=== PATIENT | female | born 1995 | race Two or more races ===

== ENCOUNTER → 2016-08-03 | Outpatient (REF) | payer OTHER ==
[~2016-08-03] MED LIST: ACET50TA PO; IBUP-1114 PO; MOTR200T44 PO; TYLENOL PO; VITAPRTA PO
[2016-08-03 18:23] LABS: ALBUMIN 3.9 GM/DL (3.2-5.2); ALBUMIN/GLOBULIN RATIO 1.03 (1.00-1.93); ALKALINE PHOSPHATASE 113 U/L (45-117); ALT/SGPT 51 U/L (12-78); AMYLASE 23 U/L (25-115); ANION GAP 7 MEQ/L (8-16); AST/SGOT 29 U/L (15-37); BILIRUBIN,TOTAL 0.4 MG/DL (0.2-1.0); BLOOD UREA NITROGEN 15 MG/DL (7-18); CALCIUM LEVEL 8.7 MG/DL (8.5-10.1); CARBON DIOXIDE LEVEL 31 MEQ/L (21-32); CHLORIDE LEVEL 104 MEQ/L (98-107); CREATININE FOR GFR 0.68 MG/DL (0.55-1.02); GLOMERULAR FILTRATION RATE > 60.0 (>60); GLUCOSE, FASTING 73 MG/DL (70-105); POTASSIUM SERUM 4.1 MEQ/L (3.5-5.1); SODIUM LEVEL 142 MEQ/L (136-145); TOTAL PROTEIN 7.7 GM/DL (6.4-8.2)
[2016-08-03 19:00] LABS: BASO % 0.6 % (0.0-1.0); EOS # 0.4 K/mm3 (0.0-0.50); EOS % 5.1 % (0.0-3.0); LARGE UNSTAINED CELL # 0.1 K/mm3 (0.0-0.4); LARGE UNSTAINED CELL % 1.9 % (0.0-4.0); LYMPH # 2.3 K/mm3 (1.5-6.5); MEAN CORPUSCULAR HEMOGLOBIN 26.7 pg (27.0-33.0); MEAN CORPUSCULAR VOLUME 83.3 fl (80.0-96.0); MONO # 0.4 K/mm3 (0.0-0.8); MONO % 5.3 % (0.0-5.0); NEUTROPHILS # 3.7 K/mm3 (1.8-7.7); NEUTROPHILS % 54.2 % (36.0-66.0); PLATELET COUNT, AUTOMATED 353 k/mm3 (150-450); RED CELL DISTRIBUTION WIDTH 13.5 % (11.5-14.5); WHITE BLOOD COUNT 6.8 K/mm3 (4.0-10.0)
== END | disposition home or self-care (01) ==
LOC: M SFHCCLAY 11:00
PROVIDERS: ATTEND Family Medicine
DX: R10.13 Epigastric pain (principal)

== ENCOUNTER → 2016-08-21 | Outpatient (CLI) | payer OTHER ==
--- NOTE | 2016-08-21 12:31 | REP ---
Complete abdominal ultrasound: Comparison is a renal ultrasound dated 09/17/2014. There is a negative Weinstein's sign to transducer pressure over the abdominal right upper quadrant. There is no cholelithiasis, gallbladder wall thickening or pericholecystic fluid. There is no intrahepatic or extrahepatic biliary duct dilatation, the common duct is 2.2 mm diameter. The hepatic parenchyma is homogeneous and unremarkable. The visualized portion of the pancreatic head is unremarkable. The spleen is upper normal size measuring 10.9 x 6.1 x 10.5 cm. Splenic index is mildly elevated measuring 698 (normal is less than 480 ). The kidneys are normal size. The right kidney measures 11.7 x 5 with 6 x 4.0 cm, the left kidney measures 11.0 6.6 x 4.9 cm. There is no hydronephrosis, calculus, mass or cyst in the right and the left kidneys. This is unchanged from the comparison renal ultrasound. There is no abdominal aortic aneurysm. There is no ascites. Impression: Essentially negative complete abdominal ultrasound. Spleen is upper normal size by diameter measurements. Splenic index is mildly elevated. Signed by Og Velasquez MD 08/21/2016 12:23 P
== END | disposition home or self-care (01) ==
LOC: M RAD 08:47
PROVIDERS: ATTEND Family Medicine
DX: R10.13 Epigastric pain (principal)

== ENCOUNTER → 2017-11-18 | Outpatient (REF) | payer OTHER | LOC: M LAB REF 13:22 | DX: R10.2 Pelvic and perineal pain (principal) ==

== ENCOUNTER → 2017-11-18 | Outpatient (REF) | payer OTHER ==
[2017-11-18 16:53] LABS: CHLAMYDIA DNA AMPLIFICATION NEGATIVE (NEGATIVE); GC DNA AMPLIFICATION NEGATIVE (NEGATIVE)
== END ==
LOC: M LAB REF 13:28
DX: R10.2 Pelvic and perineal pain (principal)

== ENCOUNTER → 2017-11-19 | Outpatient (CLI) | payer OTHER | LOC: M RAD 05:56 | DX: R10.2 Pelvic and perineal pain (principal) | CPT/HCPCS: 76856 ==

== ENCOUNTER 2018-10-21 22:25 | Emergency (ER) | payer OTHER ==
[~2018-10-21] VITALS: Ht 162.6 cm; Wt 84.5 kg
[2018-10-21 22:25] VITALS: BP 128/76
[~2018-10-21 22:25] MED LIST changes: -ACET50TA PO; +MAPA500T2 PO
[2018-10-21] MEDS ORDERED: IBUPROFEN 600 MG TAB PO ONE (23:00)
[2018-10-21] MEDS ORDERED: OSELTAMIVIR PHOSPHATE 75 MG CAP (TAMIFLU) PO ONE (23:00)
[2018-10-21] MEDS ORDERED: OSEL75CA PO (23:02)
== END 2018-10-21 23:15 | disposition home or self-care (01) ==
LOC: M ED 22:25
DX: R53.81 Other malaise (principal); R53.83 Other fatigue; B34.9 Viral infection, unspecified; F17.210 Nicotine dependence, cigarettes, uncomplicated

== ENCOUNTER → 2019-02-09 | Outpatient (REF) | payer OTHER ==
[~2019-02-09] MED LIST changes: +OSEL75CA PO
== END ==
LOC: M LAB REF 13:17
PROVIDERS: ATTEND Advanced Practice Midwife
DX: Z12.4 Encounter for screening for malignant neoplasm of cervix (principal)

== ENCOUNTER 2019-05-03 01:56 | Emergency (ER) | payer OTHER ==
[~2019-05-03] VITALS: Ht 162.6 cm; Wt 83.1 kg
[2019-05-03 02:13] LABS: BILIRUBIN, URINE MANUAL OBSCURED (NEGATIVE); GLUCOSE, URINE (UA) MANUAL OBSCURED mg/dL (NEGATIVE); KETONE, URINE MANUAL OBSCURED mg/dL (NEGATIVE); UROBILINOGEN, URINE MANUAL OBSCURED mg/dl (NORMAL)
[2019-05-03 02:17] LABS: BACTERIA, URINE MOD AMOUNT; SQUAMOUS EPITHELIAL CELL URINE SMALL AMOUNT /hpf (SMALL AMT)
[2019-05-03 02:20] LABS: HYALINE CAST, URINE NONE SEEN /lpf (0-1); MUCUS, URINE LARGE AMOUNT (NEGATIVE); TRANSITIONAL EPI CELLS, URINE SMALL AMOUNT /hpf
[2019-05-03 02:21] LABS: AMORPHOUS SEDIMENT, URINE SMALL AMOUNT (NEGATIVE)
[2019-05-03] MEDS ORDERED: BACT800T5 PO (05:56)
[2019-05-03] MEDS ORDERED: BACTRIM 160MG/800MG DS TAB PO ONE (06:00)
[2019-05-03 06:14] VITALS: BP 123/77
== END 2019-05-03 06:17 | disposition home or self-care (01) ==
LOC: M ED 01:56
DX: N39.0 Urinary tract infection, site not specified (principal); Z87.442 Personal history of urinary calculi

== ENCOUNTER 2019-08-16 01:35 | Emergency (ER) | payer OTHER ==
[~2019-08-16] VITALS: Ht 162.6 cm; Wt 79.1 kg
[~2019-08-16 01:35] MED LIST changes: +BACT800T5 PO
[2019-08-16 02:35] LABS: HEMATOCRIT 40.3 % (36.0-47.0); HEMOGLOBIN 13.2 g/dl (12.0-15.5); MEAN CORPUSCULAR HGB CONC 32.8 g/dl (32.0-36.5); MEAN CORPUSCULAR VOLUME 85.4 fl (80.0-96.0); PLATELET COUNT, AUTOMATED 273 10^3/uL (150-450); RED BLOOD COUNT 4.72 10^6/uL (4.00-5.40); WHITE BLOOD COUNT 7.5 10^3/uL (4.0-10.0)
[2019-08-16 02:56] LABS: HCG, SERUM QUALITATIVE NEGATIVE (NEGATIVE)
[2019-08-16 02:59] LABS: ALBUMIN 3.3 GM/DL (3.2-5.2); ALT/SGPT 29 U/L (12-78); BILIRUBIN,TOTAL 0.7 MG/DL (0.2-1.0); BLOOD UREA NITROGEN 11 MG/DL (7-18); CARBON DIOXIDE LEVEL 26 MEQ/L (21-32); CHLORIDE LEVEL 107 MEQ/L (98-107); CREATININE FOR GFR 0.76 MG/DL (0.55-1.30); GLOMERULAR FILTRATION RATE > 60.0 (>60); GLUCOSE, FASTING 102 MG/DL (70-100); LIPASE 117 U/L (73-393); POTASSIUM SERUM 3.6 MEQ/L (3.5-5.1); SODIUM LEVEL 140 MEQ/L (136-145); TOTAL PROTEIN 6.7 GM/DL (6.4-8.2)
[2019-08-16] MEDS ORDERED: ONDANSETRON 4MG/2ML VIAL (J2405) IV ONE (04:15)
[2019-08-16] MEDS ORDERED: KETOROLAC 30 MG/ML VIAL (J1885) IV ONE (08:00)
--- NOTE | 2019-08-16 08:32 | REP ---
clinical: Acute pelvic pain. Technique: Transabdominal pelvic ultrasound followed by transvaginal examination for better evaluation of the endometrium and adnexa with color Doppler evaluation of the ovaries. Findings: Normal anteverted uterus measures 7.7 x 5.0 x 4.2 cm. Endometrial complex measures 8 mm thickness. No discrete uterine or endometrial abnormalities appreciated. The bilateral ovaries are normal in vascularity without torsion. Right ovary measures 3.4 x 1.3 x 2.0 cm. Left ovary measures 4.1 x 2.2 x 4.8 cm (RI 0.52) and includes 3.8 x 2.5 x 3.7 cm cyst. Small amount of free fluid noted in the pelvis. No adnexal mass lesion identified. Bladder is normal and measures 7.7 x 2.7 x 3.8 cm. Impression: 1. 3.8 cm left ovarian cyst likely physiologic. Consider reevaluation in 4-6 weeks to evaluate for resolution. 2. Otherwise normal pelvic ultrasound. No torsion. Electronically Signed by Filipe Smith MD 08/16/2019 08:24 A
--- NOTE | 2019-08-16 08:59 | REP ---
Clinical: Abdominal pain. Technique: Single supine view of the abdomen and pelvis. Findings: Bowel gas pattern is nonspecific. No obvious organomegaly. Tiny left intrarenal calculus cannot be excluded. Impression: Normal bowel gas pattern. Cannot exclude small nonobstructing left renal calculus Electronically Signed by Filipe Smith MD 08/16/2019 08:51 A
[2019-08-16 09:19] VITALS: BP 122/67
[2019-08-16] MEDS ORDERED: ONDA4TAB6 PO (09:52)
--- NOTE | 2019-08-17 19:06 | ED PDOC ---
Post-Departure Follow-Up dr avendano faxed formal report of pelvic us for fu Guera Soliz MD Aug 17, 2019 19:06
== END 2019-08-16 09:26 | disposition home or self-care (01) ==
LOC: M ED 01:35
DX: N83.202 Unspecified ovarian cyst, left side (principal); N20.0 Calculus of kidney; R11.0 Nausea; F41.9 Anxiety disorder, unspecified; R51 Headache; Z20.9 Contact with and (suspected) exposure to unspecified communicable disease; Z72.0 Tobacco use
CPT/HCPCS: 74018; 76830; 76856; 80053; 81001; 83690; 84703; 85027; 93976; 96374; 96375; 99284; J1885; J2405

== ENCOUNTER 2019-09-10 07:05 | Emergency (ER) | payer OTHER, SELFPAY ==
[~2019-09-10] VITALS: Ht 162.6 cm; Wt 81.0 kg
[~2019-09-10 07:05] MED LIST changes: +ONDA4TAB6 PO
[2019-09-10] MEDS ORDERED: PORTTAB (07:12)
[2019-09-10 07:59] LABS: BASO % 0.3 % (0.0-1.0); EOS # 0.5 10^3/uL (0.0-0.5); EOS % 5.5 % (0.0-3.0); HEMATOCRIT 38.1 % (36.0-47.0); HEMOGLOBIN 12.5 g/dl (12.0-15.5); LYMPH # 3.1 10^3/uL (1.5-5.0); LYMPH % 35.4 % (24.0-44.0); MEAN CORPUSCULAR HEMOGLOBIN 28.1 pg (27.0-33.0); MEAN CORPUSCULAR HGB CONC 32.8 g/dl (32.0-36.5); MEAN CORPUSCULAR VOLUME 85.6 fl (80.0-96.0); MONO # 0.5 10^3/uL (0.0-0.8); MONO % 5.7 % (0.0-5.0); NEUTROPHILS # 4.6 10^3/uL (1.5-8.5); NEUTROPHILS % 52.9 % (36.0-66.0); PLATELET COUNT, AUTOMATED 315 10^3/uL (150-450); RED BLOOD COUNT 4.45 10^6/uL (4.00-5.40); WHITE BLOOD COUNT 8.7 10^3/uL (4.0-10.0)
[2019-09-10] MEDS ORDERED: ACETAMINOPHEN 500 MG TAB PO ONE (09:15)
--- NOTE | 2019-09-10 09:19 | REP ---
Pelvic sonography: History: Known left ovarian cyst. Worsening in increased pain. Comparison pelvic sonography August 16, 2019 showed a 3.8 cm left ovarian cyst. Findings: Transabdominal and transvaginal scanning are performed. Uterine dimensions are normal to a point one by a 3.9 x 5.2 cm. Endometrial echo is 0.5 cm thick and centrally placed. There is a 3 x 3 x 7 mm hypoechoic area in the endometrium which may be thrombus or cyst. No focal uterine mass is seen. Urinary bladder solorzano are smooth. Right ovarian dimensions are 3.0 x 1.4 x 1.4 cm. Right ovary is normal. Left ovary measures 3.4 x 2.2 x 3.1 cm. There is a 2.8 by 1.7 x 1.9 cm follicle cyst in the left ovary today. This is smaller than previously noted. Impression: 2.8 cm follicle cyst left ovary. No free fluid. No other significant finding. Electronically Signed by Stefan Martinez MD 09/10/2019 09:11 A
[2019-09-10 09:37] VITALS: BP 107/62
[2019-09-10 10:28] LABS: CHLAMYDIA DNA AMPLIFICATION NEGATIVE (NEGATIVE); GC DNA AMPLIFICATION NEGATIVE (NEGATIVE)
== END 2019-09-10 09:39 | disposition home or self-care (01) ==
LOC: M ED 07:05
DX: N93.8 Other specified abnormal uterine and vaginal bleeding (principal); N83.02 Follicular cyst of left ovary; Z72.0 Tobacco use; Z87.42 Personal history of other diseases of the female genital tract; Z79.3 Long term (current) use of hormonal contraceptives

== ENCOUNTER 2019-12-15 11:07 | Emergency (ER) | payer OTHER ==
[~2019-12-15] VITALS: Ht 162.6 cm; Wt 77.3 kg
[~2019-12-15 11:07] MED LIST changes: +PORTTAB
[2019-12-15] MEDS ORDERED: LILL1TAB PO (11:18)
[2019-12-15 11:39] LABS: BASO % 0.5 % (0.0-1.0); EOS # 0.3 10^3/uL (0.0-0.5); EOS % 5.7 % (0.0-3.0); HEMATOCRIT 44.1 % (36.0-47.0); HEMOGLOBIN 14.6 g/dl (12.0-15.5); MEAN CORPUSCULAR HEMOGLOBIN 28.5 pg (27.0-33.0); MEAN CORPUSCULAR HGB CONC 33.1 g/dl (32.0-36.5); MONO # 0.3 10^3/uL (0.0-0.8); MONO % 5.2 % (0.0-5.0); NEUTROPHILS # 3.3 10^3/uL (1.5-8.5); NEUTROPHILS % 55.4 % (36.0-66.0); PLATELET COUNT, AUTOMATED 344 10^3/uL (150-450); RED BLOOD COUNT 5.13 10^6/uL (4.00-5.40)
[2019-12-15 12:10] LABS: ALBUMIN 3.8 GM/DL (3.2-5.2); BILIRUBIN,DIRECT 0.1 MG/DL (0.0-0.2); BILIRUBIN,TOTAL 0.4 MG/DL (0.2-1.0); TOTAL PROTEIN 7.8 GM/DL (6.4-8.2)
[2019-12-15] MEDS ORDERED: KETOROLAC 30 MG/ML 1ML VIAL IV ONE (12:15)
[2019-12-15] MEDS ORDERED: NS 1,000 ML IV ONE (12:15)
--- NOTE | 2019-12-15 13:45 | REP ---
REASON: Abdominal pain. COMPARISON: None. Ultrasonographic evaluation of the gallbladder shows near specular reflection in the gallbladder fossa consistent with SKYLER triad. The technologist has indicated that the patient has a positive sonographic Weinstein's sign. The common bile duct is dilated for the patient's age measuring 8 mm and millimeter sized echogenic foci are seen in the common bile duct. Ultrasonographic evaluation of the liver, pancreas, and imaged portion of the right kidney show no abnormalities. There is no free fluid in the abdomen. IMPRESSION: 1. SKYLER triad consistent a gallbladder chocked full of choleliths. This makes evaluation of the gallbladder wall unobtainable. There is no jacki pericholecystic edema, however, the technologist has described on the worksheet that the patient has a sonographic Weinstein's sign. 2. Common bile duct dilatation with evidence of choledocholiths and even sludge within the common bile duct. This needs to be correlated clinically with appropriate followup to ensure resolution. Electronically Signed by Gregorio Best DO 12/15/2019 03:05 P
[2019-12-15] MEDS ORDERED: IBUP1TAB7 PO (13:48)
[2019-12-15] MEDS ORDERED: LR 1,000 ML IV SCH (14:30)
[2019-12-15] MEDS ORDERED: ONDANSETRON 4MG/2ML VIAL IV ONE (14:45)
[2019-12-15] MEDS ORDERED: MORPHINE 4 MG/ML 1ML VIAL/SYRINGE (J2270) IV ONE ×2 (14:45→19:00)
[2019-12-15 19:01] VITALS: BP 140/89
== END 2019-12-15 19:03 | disposition short-term general hospital (02) ==
LOC: M ED 11:07
DX: K80.70 Calculus of gallbladder and bile duct without cholecystitis without obstruction (principal); K83.8 Other specified diseases of biliary tract; R11.0 Nausea; Z87.442 Personal history of urinary calculi; Z87.42 Personal history of other diseases of the female genital tract; Z72.0 Tobacco use; Z79.3 Long term (current) use of hormonal contraceptives
CPT/HCPCS: 76705; 80047; 80076; 81001; 83690; 84702; 85025; 96361; 96374; 96375; 96376; 99284; J1885; J2270; J2405

== ENCOUNTER 2019-12-26 03:11 | Emergency (ER) | payer OTHER ==
[~2019-12-26] VITALS: Ht 162.6 cm; Wt 76.4 kg
[~2019-12-26 03:11] MED LIST changes: +IBUP1TAB7 PO; +LILL1TAB PO
[2019-12-26] MEDS ORDERED: OXYC-517 PO (03:15)
[2019-12-26] MEDS ORDERED: ZOFR4TAB16 PO (03:15)
[2019-12-26 04:06] LABS: BASO % 0.4 % (0.0-1.0); EOS # 0.2 10^3/uL (0.0-0.5); EOS % 2.6 % (0.0-3.0); HEMATOCRIT 43.2 % (36.0-47.0); HEMOGLOBIN 14.6 g/dl (12.0-15.5); LYMPH # 1.9 10^3/uL (1.5-5.0); LYMPH % 26.1 % (24.0-44.0); MEAN CORPUSCULAR HEMOGLOBIN 28.8 pg (27.0-33.0); MEAN CORPUSCULAR HGB CONC 33.8 g/dl (32.0-36.5); MEAN CORPUSCULAR VOLUME 85.2 fl (80.0-96.0); MONO # 0.5 10^3/uL (0.0-0.8); MONO % 6.3 % (0.0-5.0); NEUTROPHILS # 4.7 10^3/uL (1.5-8.5); NEUTROPHILS % 64.3 % (36.0-66.0); PLATELET COUNT, AUTOMATED 372 10^3/uL (150-450); RED BLOOD COUNT 5.07 10^6/uL (4.00-5.40); WHITE BLOOD COUNT 7.3 10^3/uL (4.0-10.0)
[2019-12-26] MEDS ORDERED: ONDANSETRON 4MG/2ML VIAL IV ONE (04:15)
[2019-12-26] MEDS ORDERED: HYDROMORPHONE HCL 0.5 MG/ 0.5 ML SYRINGE (J1170 PER 1) IV PRN (04:15)
[2019-12-26 04:17] LABS: ALBUMIN 3.6 GM/DL (3.2-5.2); BILIRUBIN,DIRECT 1.6 MG/DL (0.0-0.2); BILIRUBIN,TOTAL 2.4 MG/DL (0.2-1.0); TOTAL PROTEIN 7.7 GM/DL (6.4-8.2)
[2019-12-26] MEDS ORDERED: ISOVUE-370 76% 100ML VIAL As Ordered ONE (04:18)
[2019-12-26] MEDS ORDERED: METOCLOPRAMIDE INJ 10MG/2ML VIAL (J2765 PER 1) IV ONE (04:45)
--- NOTE | 2019-12-26 04:46 | REPVR ---
PROCEDURE INFORMATION: Exam: CT Angiography Chest With Contrast Exam date and time: 12/26/2019 4:05 AM Age: 24 years old Clinical indication: Chest pain; Type not specified; Additional info: Chest pain, back pain, recent lap choley TECHNIQUE: Imaging protocol: Computed tomographic angiography of the chest with intravenous contrast. 3D rendering: MIP and/or 3D reconstructed images were created by the technologist. Radiation optimization: All CT scans at this facility use at least one of these dose optimization techniques: automated exposure control; mA and/or kV adjustment per patient size (includes targeted exams where dose is matched to clinical indication); or iterative reconstruction. Contrast material: ISO; Contrast volume: 100 ml; Contrast route: INTRAVENOUS (IV); COMPARISON: No relevant prior studies available. FINDINGS: Pulmonary arteries: The main pulmonary artery measures 24 mm. No pulmonary embolism is identified. Aorta: The ascending thoracic aorta measures 24 mm. Lungs: Minimal dependent atelectasis. Pleural space: Unremarkable. No pneumothorax. No pleural effusion. Heart: Unremarkable. No cardiomegaly. No pericardial effusion. Mediastinal space: There is soft tissue conforming to the anterior mediastinum consistent with residual thymic tissue. Lymph nodes: Unremarkable. No enlarged lymph nodes. Bones/joints: Unremarkable. No acute fracture. Soft tissues: Unremarkable. IMPRESSION: Negative CTA chest. No pulmonary embolism is identified. Electronically signed by: Rizwan Valdovinos On 12/26/2019 04:46:25 AM
--- NOTE | 2019-12-26 04:54 | REPVR ---
PROCEDURE INFORMATION: Exam: CT Abdomen And Pelvis With Contrast Exam date and time: 12/26/2019 4:05 AM Age: 24 years old Clinical indication: Abdominal pain; Epigastric; Prior surgery; Surgery date: <1 month; Surgery type: Lap martita; Additional info: Chest pain, back pain, recent lap choley TECHNIQUE: Imaging protocol: Computed tomography of the abdomen and pelvis with intravenous contrast. Radiation optimization: All CT scans at this facility use at least one of these dose optimization techniques: automated exposure control; mA and/or kV adjustment per patient size (includes targeted exams where dose is matched to clinical indication); or iterative reconstruction. Contrast material: ISO; Contrast volume: 100 ml; Contrast route: INTRAVENOUS (IV); COMPARISON: US PELVIC NON-OB COMPLETE 09/10/2019 8:34 AM FINDINGS: Liver: Normal. No mass. Gallbladder and bile ducts: Status post cholecystectomy. Pancreas: Normal. No ductal dilation. Spleen: Normal. No splenomegaly. Adrenals: Normal. No mass. Kidneys and ureters: Normal. No hydronephrosis. Stomach and bowel: Borderline distention of proximal jejunum which is nonspecific. Appendix: A normal appendix is seen. Intraperitoneal space: Trace free fluid in the pelvis. Vasculature: Unremarkable. No abdominal aortic aneurysm. Lymph nodes: Unremarkable. No enlarged lymph nodes. Bladder: Unremarkable as visualized. Reproductive: Unremarkable as visualized. Bones/joints: Unremarkable. No acute fracture. Soft tissues: Subcutaneous gas in the right anterior abdominal wall consistent with recent surgery. IMPRESSION: 1. Findings consistent with recent cholecystectomy. 2. Otherwise negative CT abdomen/pelvis. Electronically signed by: Rizwan Valdovinos On 12/26/2019 04:54:18 AM
[2019-12-26] MEDS ORDERED: ONDA4TAB6 PO (05:52)
[2019-12-26 06:01] VITALS: BP 121/70
--- NOTE | 2019-12-26 07:55 | ECGEPIP ---
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
== END 2019-12-26 06:04 | disposition home or self-care (01) ==
LOC: M ED 03:11
DX: G89.18 Other acute postprocedural pain (principal); R10.13 Epigastric pain; Z90.49 Acquired absence of other specified parts of digestive tract; F17.210 Nicotine dependence, cigarettes, uncomplicated; Z79.3 Long term (current) use of hormonal contraceptives
CPT/HCPCS: 71275; 74177; 80047; 80076; 83690; 84702; 85025; 93005; 96374; 96375; 99284; J1170; J2405; J2765; Q9967

== ENCOUNTER → 2020-01-08 | Outpatient (CLI) | payer OTHER ==
[~2020-01-08] MED LIST changes: +CEFD300CAP PO; +MACR100C43 PO; +NORC1TAB7 PO; +OXYC-517 PO; +ZOFR4TAB16 PO
[2020-01-08 18:57] LABS: ALBUMIN 3.6 GM/DL (3.2-5.2); ALT/SGPT 81 U/L (12-78); BILIRUBIN,TOTAL 0.3 MG/DL (0.2-1.0); BLOOD UREA NITROGEN 8 MG/DL (7-18); CALCIUM LEVEL 8.8 MG/DL (8.5-10.1); CARBON DIOXIDE LEVEL 26 MEQ/L (21-32); CHLORIDE LEVEL 109 MEQ/L (98-107); CREATININE FOR GFR 0.76 MG/DL (0.55-1.30); GLOMERULAR FILTRATION RATE > 60.0 (>60); GLUCOSE, FASTING 74 MG/DL (70-100); SODIUM LEVEL 140 MEQ/L (136-145); TOTAL PROTEIN 7.7 GM/DL (6.4-8.2)
== END ==
LOC: M LAB 18:07
PROVIDERS: ATTEND Surgery
DX: K80.42 Calculus of bile duct with acute cholecystitis without obstruction (principal)

== ENCOUNTER 2020-01-09 10:13 | Emergency (ER) | payer OTHER ==
[~2020-01-09] VITALS: Ht 162.6 cm; Wt 77.8 kg
[~2020-01-09 10:13] MED LIST changes: -CEFD300CAP PO; -MACR100C43 PO; -NORC1TAB7 PO
[2020-01-09] MEDS ORDERED: NS 1,000 ML IV ONE ×2 (10:45→14:00)
[2020-01-09] MEDS ORDERED: ONDANSETRON 4MG/2ML VIAL IV ONE (10:45)
[2020-01-09] MEDS: HYDROMORPHONE HCL 0.5 MG/ 0.5 ML SYRINGE (J1170 PER 1) IV PRN ×2 (10:55→11:27)
[2020-01-09 11:12] LABS: BASO % 0.3 % (0.0-1.0); EOS # 0.3 10^3/uL (0.0-0.5); EOS % 3.6 % (0.0-3.0); HEMATOCRIT 44.3 % (36.0-47.0); HEMOGLOBIN 14.6 g/dl (12.0-15.5); LYMPH # 1.8 10^3/uL (1.5-5.0); LYMPH % 24.3 % (24.0-44.0); MEAN CORPUSCULAR HEMOGLOBIN 28.5 pg (27.0-33.0); MEAN CORPUSCULAR VOLUME 86.5 fl (80.0-96.0); MONO # 0.4 10^3/uL (0.0-0.8); MONO % 5.3 % (0.0-5.0); NEUTROPHILS # 4.9 10^3/uL (1.5-8.5); NEUTROPHILS % 66.2 % (36.0-66.0); PLATELET COUNT, AUTOMATED 366 10^3/uL (150-450); RED BLOOD COUNT 5.12 10^6/uL (4.00-5.40); WHITE BLOOD COUNT 7.4 10^3/uL (4.0-10.0)
[2020-01-09] MEDS ORDERED: ISOVUE-370 76% 100ML VIAL As Ordered ONE (11:33)
[2020-01-09] MEDS ORDERED: PROMETHAZINE INJ 25 MG/ML VIAL (J2550) IV ONE ×2 (12:00→14:45)
[2020-01-09 13:30] LABS: BILIRUBIN,DIRECT 0.9 MG/DL (0.0-0.2); BILIRUBIN,TOTAL 1.4 MG/DL (0.2-1.0); TOTAL PROTEIN 8.1 GM/DL (6.4-8.2)
--- NOTE | 2020-01-09 15:52 | REP ---
REASON FOR EXAM: Abdominal pain. COMPARISON EXAM: 12/26/2019 CONTRAST: 100 mL Isovue 370. The lung bases are clear and unchanged. The patient is status post cholecystectomy. The liver, spleen, adrenal glands, and kidneys are again seen to be within normal limits. There is fluid in the left anterior pararenal space with a small amount of fluid seen in the left paracolic gutter. There is a haziness throughout the peripancreatic mesentery. There is mild diffuse low density seen throughout the pancreas. All of this represents a change from the prior exam. There is no additional free fluid in the abdomen or pelvis. There is no free air in the abdomen or pelvis. The bowel loops and their mesenteries are otherwise unremarkable. The abdominal aorta and periaortic regions are unchanged. The osseous structures are stable and intact. IMPRESSION: Pancreatitis. Electronically Signed by Gregorio Best DO 01/09/2020 05:29 P
--- NOTE | 2020-01-09 16:03 | REP ---
REASON: Chest pain. COMPARISON: 12/26/[address] angio chest. CONTRAST: 100 mL Isovue 370. There is excellent visualization of the pulmonary arterial vasculature. There are no focal filling defects present that would be considered consistent with acute pulmonary emboli. There are no pleural or pericardial effusions. The mediastinum and pulmonary elza are again seen to be within normal limits status quo. Evaluation of the lung toscano shows mild dependent bilateral subsegmental atelectatic changes without evidence of a new abnormal nodule, mass, or opacity. The thoracic aorta is within normal limits. Bone window technique throughout the examination shows the osseous structures to be stable and intact. IMPRESSION: CT findings are within normal limits. Electronically Signed by Gregorio Best DO 01/09/2020 05:31 P
[2020-01-09 17:10] VITALS: BP 113/62
== END 2020-01-09 17:17 | disposition short-term general hospital (02) ==
LOC: M ED 10:13
DX: K85.90 Acute pancreatitis without necrosis or infection, unspecified (principal); R94.5 Abnormal results of liver function studies; Z87.442 Personal history of urinary calculi; Z87.891 Personal history of nicotine dependence; Z79.3 Long term (current) use of hormonal contraceptives
CPT/HCPCS: 71275; 74177; 80047; 80076; 82150; 83605; 83690; 84702; 85025; 93041; 96361; 96374; 96375; 96376; 99285; J1170; J2405; Q9967

== ENCOUNTER 2020-04-14 19:17 | Emergency (ER) | payer OTHER ==
[~2020-04-14] VITALS: Ht 162.6 cm; Wt 75.9 kg
[2020-04-14] MEDS ORDERED: CEFD300CAP PO (19:21)
[2020-04-14] MEDS ORDERED: MACR100C43 PO (19:21)
[2020-04-14] MEDS ORDERED: METOCLOPRAMIDE INJ 10MG/2ML VIAL (J2765 PER 1) IV ONE (20:00)
[2020-04-14] MEDS ORDERED: NS 1,000 ML IV ONE (20:00)
[2020-04-14 20:35] LABS: BASO % 0.2 % (0.0-1.0); EOS # 0.4 10^3/uL (0.0-0.5); HEMATOCRIT 41.8 % (36.0-47.0); HEMOGLOBIN 13.6 g/dl (12.0-15.5); LYMPH # 3.3 10^3/uL (1.5-5.0); LYMPH % 36.5 % (24.0-44.0); MEAN CORPUSCULAR HEMOGLOBIN 27.9 pg (27.0-33.0); MEAN CORPUSCULAR HGB CONC 32.5 g/dl (32.0-36.5); MEAN CORPUSCULAR VOLUME 85.8 fl (80.0-96.0); MONO # 0.5 10^3/uL (0.0-0.8); MONO % 5.4 % (0.0-5.0); NEUTROPHILS # 4.9 10^3/uL (1.5-8.5); NEUTROPHILS % 53.7 % (36.0-66.0); PLATELET COUNT, AUTOMATED 271 10^3/uL (150-450); RED BLOOD COUNT 4.87 10^6/uL (4.00-5.40); WHITE BLOOD COUNT 9.1 10^3/uL (4.0-10.0)
[2020-04-14 20:45] LABS: INR 0.91; PROTHROMBIN TIME 12.5 SECONDS (12.5-14.3)
[2020-04-14 21:07] LABS: ALBUMIN 3.4 GM/DL (3.2-5.2); ALT/SGPT 34 U/L (12-78); BILIRUBIN,DIRECT < 0.1 MG/DL (0.0-0.2); BILIRUBIN,TOTAL 0.2 MG/DL (0.2-1.0); BLOOD UREA NITROGEN 12 MG/DL (7-18); CALCIUM LEVEL 8.5 MG/DL (8.5-10.1); CARBON DIOXIDE LEVEL 30 MEQ/L (21-32); CHLORIDE LEVEL 105 MEQ/L (98-107); CREATININE FOR GFR 0.78 MG/DL (0.55-1.30); GLOMERULAR FILTRATION RATE > 60.0 (>60); GLUCOSE, FASTING 79 MG/DL (70-100); LIPASE 147 U/L (73-393); POTASSIUM SERUM 4.1 MEQ/L (3.5-5.1); SODIUM LEVEL 140 MEQ/L (136-145); TOTAL PROTEIN 6.9 GM/DL (6.4-8.2)
--- NOTE | 2020-04-14 21:42 | REPVR ---
PROCEDURE INFORMATION: Exam: CT Abdomen And Pelvis Without Contrast Exam date and time: 04/14/2020 9:06 PM Age: 25 years old Clinical indication: Abdominal pain; Prior surgery; Surgery date: 3-7 days post-operative; Surgery type: Hysterectomy; Additional info: Pelvic pain TECHNIQUE: Imaging protocol: Computed tomography of the abdomen and pelvis without contrast. Radiation optimization: All CT scans at this facility use at least one of these dose optimization techniques: automated exposure control; mA and/or kV adjustment per patient size (includes targeted exams where dose is matched to clinical indication); or iterative reconstruction. COMPARISON: CT ABD/PEL W/IV CONTRAST ONLY 01/09/2020 11:29 AM FINDINGS: Lungs: Minimal fibro-atelectatic change in the right middle lobe. Liver: Normal. No mass. Gallbladder and bile ducts: Status post cholecystectomy. Pancreas: Normal. No ductal dilation. Spleen: Normal. No splenomegaly. Adrenals: Normal. No mass. Kidneys and ureters: Small nonobstructing bilateral renal calculi. Stomach and bowel: Mild stool and gas throughout much of the colon. Appendix: A normal appendix is seen. Intraperitoneal space: Unremarkable. No free air. No significant fluid collection. Vasculature: Incidental note of an accessory retroaortic left renal vein. Lymph nodes: Unremarkable. No enlarged lymph nodes. Urinary bladder: Unremarkable as visualized. Reproductive: Right ovarian cyst measuring 20 mm. The uterus is present. Bones/joints: Unremarkable. No acute fracture. Soft tissues: Unremarkable. IMPRESSION: 1. Status post cholecystectomy. 2. Small nonobstructing bilateral renal calculi. No ureteral calculi are evident and there is no evidence of obstructive uropathy. 3. Right ovarian cyst/follicle measuring approximately 20 mm. 4. Despite the stated history, the uterus is present and appears normal. Electronically signed by: Rizwan Valdovinos On 04/14/2020 21:41:41 PM
[2020-04-14] MEDS ORDERED: ZOFR4TAB16 PO (21:47)
[2020-04-14] MEDS ORDERED: NORC1TAB7 PO (21:47)
[2020-04-14] MEDS ORDERED: NORCO 5/325MG TABLET (BULK FOR ED) PO ONE (22:00)
[2020-04-14 22:07] VITALS: BP 135/65
== END 2020-04-14 22:12 | disposition home or self-care (01) ==
LOC: M ED 19:17
DX: N83.209 Unspecified ovarian cyst, unspecified side (principal); F17.200 Nicotine dependence, unspecified, uncomplicated; Z79.899 Other long term (current) drug therapy
CPT/HCPCS: 74176; 80048; 80076; 81001; 83690; 84702; 85025; 85610; 96361; 96374; 99284; J2765

== ENCOUNTER → 2020-05-03 | Outpatient (REF) | payer OTHER ==
[~2020-05-03] MED LIST changes: +CEFD300CAP PO; +MACR100C43 PO; +NORC1TAB7 PO
[2020-05-03 16:37] LABS: BASO # 0.1 10^3/uL (0.0-0.2); BASO % 0.6 % (0.0-1.0); EOS # 0.7 10^3/uL (0.0-0.5); HEMATOCRIT 44.2 % (36.0-47.0); HEMOGLOBIN 14.2 g/dl (12.0-15.5); LYMPH # 2.9 10^3/uL (1.5-5.0); MEAN CORPUSCULAR HEMOGLOBIN 27.7 pg (27.0-33.0); MEAN CORPUSCULAR HGB CONC 32.1 g/dl (32.0-36.5); MEAN CORPUSCULAR VOLUME 86.3 fl (80.0-96.0); MONO # 0.4 10^3/uL (0.0-0.8); MONO % 5.3 % (0.0-5.0); NEUTROPHILS # 4.1 10^3/uL (1.5-8.5); NEUTROPHILS % 50.7 % (36.0-66.0); PLATELET COUNT, AUTOMATED 345 10^3/uL (150-450); RED BLOOD COUNT 5.12 10^6/uL (4.00-5.40); WHITE BLOOD COUNT 8.1 10^3/uL (4.0-10.0)
[2020-05-03 17:08] LABS: ALT/SGPT 41 U/L (12-78); AMYLASE 26 U/L (25-115); BILIRUBIN,TOTAL 0.3 MG/DL (0.2-1.0); BLOOD UREA NITROGEN 11 MG/DL (7-18); CARBON DIOXIDE LEVEL 30 MEQ/L (21-32); CHLORIDE LEVEL 103 MEQ/L (98-107); CREATININE FOR GFR 0.75 MG/DL (0.55-1.30); GLOMERULAR FILTRATION RATE > 60.0 (>60); GLUCOSE, FASTING 75 MG/DL (70-100); LIPASE 172 U/L (73-393); POTASSIUM SERUM 4.1 MEQ/L (3.5-5.1); SODIUM LEVEL 139 MEQ/L (136-145); TOTAL PROTEIN 7.6 GM/DL (6.4-8.2)
== END ==
LOC: M SFHCCLAY 11:57
PROVIDERS: ATTEND Physician Assistant
DX: R10.13 Epigastric pain (principal)

== ENCOUNTER → 2020-05-22 | Outpatient (REF) | payer OTHER ==
[2020-05-22 15:34] LABS: CHLAMYDIA DNA AMPLIFICATION NEGATIVE (NEGATIVE); GC DNA AMPLIFICATION NEGATIVE (NEGATIVE)
== END ==
LOC: M SFHCPLAZ 13:28
PROVIDERS: ATTEND Advanced Practice Midwife
DX: Z12.4 Encounter for screening for malignant neoplasm of cervix (principal); N93.0 Postcoital and contact bleeding

== ENCOUNTER → 2020-08-01 | Outpatient (REF) | payer OTHER ==
[2020-08-01 13:41] LABS: HEMATOCRIT 39.9 % (36.0-47.0); HEMOGLOBIN 13.1 g/dl (12.0-15.5); MEAN CORPUSCULAR HEMOGLOBIN 28.8 pg (27.0-33.0); MEAN CORPUSCULAR HGB CONC 32.8 g/dl (32.0-36.5); MEAN CORPUSCULAR VOLUME 87.7 fl (80.0-96.0); PLATELET COUNT, AUTOMATED 303 10^3/uL (150-450); RED BLOOD COUNT 4.55 10^6/uL (4.00-5.40); WHITE BLOOD COUNT 6.8 10^3/uL (4.0-10.0)
[2020-08-01 15:19] LABS: HEPATITIS C VIRUS ABY INDEX < 0.0 INDEX (<0.8); HIV 1&2 SCREEN CENTAUR NEGATIVE (NEGATIVE)
[2020-08-01 15:54] LABS: CHLAMYDIA DNA AMPLIFICATION NEGATIVE (NEGATIVE); GC DNA AMPLIFICATION NEGATIVE (NEGATIVE)
== END ==
LOC: M PLALAB 10:27
PROVIDERS: ATTEND Advanced Practice Midwife
DX: Z34.91 Encounter for supervision of normal pregnancy, unspecified, first trimester (principal); Z3A.09 9 weeks gestation of pregnancy

== ENCOUNTER 2020-08-11 14:39 | Emergency (ER) | payer OTHER ==
[~2020-08-11] VITALS: Ht 162.6 cm; Wt 78.2 kg
[2020-08-11] MEDS ORDERED: PREN1CHW6 PO (14:44)
[2020-08-11 15:43] LABS: APPEARANCE, URINE CLEAR (CLEAR); BACTERIA, URINE AUTO NEGATIVE (NEGATIVE); BILIRUBIN, URINE AUTO NEGATIVE (NEGATIVE); BLOOD, URINE BLOOD 1+ (NEGATIVE); COLOR, URINE YELLOW (YELLOW); GLUCOSE, URINE (UA) AUTO NEGATIVE (NEGATIVE); KETONE, URINE AUTO NEGATIVE (NEGATIVE); LEUKOCYTE ESTERASE, URINE AUTO NEGATIVE (NEGATIVE); MUCUS, URINE SMALL (NEGATIVE); NITRITE, URINE AUTO NEGATIVE (NEGATIVE); PROTEIN, URINE AUTO NEGATIVE (NEGATIVE); RBC, URINE AUTO 5 /HPF (0-3); SPECIFIC GRAVITY URINE AUTO 1.013 (1.002-1.035); SQUAMOUS EPITHELIAL CELL UR AU 0 /HPF (0-6); UROBILINOGEN, URINE AUTO 0.2 mg/dL (0.0-2.0); WBC, URINE AUTO 2 /HPF (0-3)
[2020-08-11 15:44] LABS: BASO % 0.4 % (0.0-1.0); EOS # 0.1 10^3/uL (0.0-0.5); EOS % 1.2 % (0.0-3.0); HEMATOCRIT 40.2 % (36.0-47.0); HEMOGLOBIN 13.4 g/dl (12.0-15.5); LYMPH # 1.7 10^3/uL (1.5-5.0); LYMPH % 25.1 % (24.0-44.0); MEAN CORPUSCULAR HEMOGLOBIN 28.8 pg (27.0-33.0); MEAN CORPUSCULAR HGB CONC 33.3 g/dl (32.0-36.5); MEAN CORPUSCULAR VOLUME 86.3 fl (80.0-96.0); MONO # 0.4 10^3/uL (0.0-0.8); MONO % 5.2 % (0.0-5.0); NEUTROPHILS # 4.7 10^3/uL (1.5-8.5); NEUTROPHILS % 67.8 % (36.0-66.0); PLATELET COUNT, AUTOMATED 271 10^3/uL (150-450); RED BLOOD COUNT 4.66 10^6/uL (4.00-5.40); WHITE BLOOD COUNT 6.9 10^3/uL (4.0-10.0)
--- NOTE | 2020-08-11 16:37 | REP ---
INDICATION: vaginal bleeding, pelvic cramping 11weeks. COMPARISON: None. TECHNIQUE: Real-time sonographic evaluation of pelvis performed. FINDINGS: There is a single living intrauterine gestation. The estimated gestational age is 11 weeks 0 days based on a crown-rump length of 41 mm, EDC 03/02/2021. heart rate is 167 beats per minute. There is a subchorionic hemorrhage present measuring 1.6 x 0.5 x 0.6 cm. Complex corpus luteum left ovary measures 1.8 x 1.4 x 1.7 cm. Blood flow is seen in the left ovary with duplex Doppler evaluation, with no torsion. Right ovary is not visualized. IMPRESSION: Viable intrauterine gestation. Small subchorionic hemorrhage. Complex corpus luteum left ovary. No torsion. Right ovary not seen. <Electronically signed by Og Ralph > 08/11/20 [id number]
[2020-08-11 17:10] VITALS: BP 111/68
== END 2020-08-11 17:10 | disposition home or self-care (01) ==
LOC: M ED 14:39
DX: O20.8 Other hemorrhage in early pregnancy (principal); O99.341 Other mental disorders complicating pregnancy, first trimester; F41.9 Anxiety disorder, unspecified; Z87.891 Personal history of nicotine dependence; Z3A.11 11 weeks gestation of pregnancy

== ENCOUNTER → 2020-08-29 | Outpatient (REF) | payer OTHER ==
[~2020-08-29] MED LIST changes: +PREN1CHW6 PO
== END ==
LOC: M SFHCWAGY 10:13
PROVIDERS: ATTEND Advanced Practice Midwife
DX: R35.0 Frequency of micturition (principal)

== ENCOUNTER → 2020-09-25 | Outpatient (CLI) | payer OTHER | LOC: M WHC 15:43 | PROVIDERS: ATTEND Obstetrics & Gynecology | DX: Z34.92 Encounter for supervision of normal pregnancy, unspecified, second trimester (principal); Z3A.17 17 weeks gestation of pregnancy; Z53.9 Procedure and treatment not carried out, unspecified reason ==

== ENCOUNTER → 2020-10-01 | Outpatient (CLI) | payer OTHER | LOC: M WHC 13:39 | PROVIDERS: ATTEND Obstetrics & Gynecology | DX: Z34.90 Encounter for supervision of normal pregnancy, unspecified, unspecified trimester (principal) ==

== ENCOUNTER → 2020-10-25 | Outpatient (CLI) | payer OTHER | LOC: M PLALAB 08:49 | PROVIDERS: ATTEND Advanced Practice Midwife | DX: Z34.82 Encounter for supervision of other normal pregnancy, second trimester (principal); Z3A.00 Weeks of gestation of pregnancy not specified ==

== ENCOUNTER → 2020-11-20 | Outpatient (CLI) | payer OTHER ==
--- NOTE | 2020-11-21 07:24 | REP ---
INDICATION: F/U FACE EDC 03/01/21 COMPARISON: 10/01/2020 TECHNIQUE: Transabdominal obstetrical ultrasound with color Doppler evaluation. FINDINGS: Examination demonstrates a single live intrauterine in cephalic presentation. motion is identified by technologist. Placenta is noted posterior and grade 1 without evidence for placenta previa or abruption. Amniotic fluid volume is normal. Cervix measures 4.4 cm in length and appears closed.. Gestational age by LMP and 1st U/S 25 weeks 4 days with KERRIE 03/01/2021. Gestational age by current measurements 25 weeks 2 days with KERRIE 03/03/2021. FHR equals 149 beats per minute. Estimated weight 788 grams (26thpercentile). Anatomical assessment demonstrates normal structures including cranium, choroid plexus, cavum, cerebellum/posterior fossa, facial features, lungs, four-chamber heart, diaphragm, stomach, cord insertion/three-vessel cord, kidneys/bladder, spine, and extremities. IMPRESSION: Single live intrauterine in cephalic presentation demonstrating appropriate estimated weight. In conjunction with prior examination anatomical assessment is complete and normal. <Electronically signed by Filipe Smith > 11/21/20 [id number]
== END ==
LOC: M WHC 12:18
PROVIDERS: ATTEND Advanced Practice Midwife
DX: Z36.9 Encounter for antenatal screening, unspecified (principal); Z3A.25 25 weeks gestation of pregnancy

== ENCOUNTER → 2020-11-30 | Outpatient (CLI) | payer OTHER ==
[2020-11-30 09:35] LABS: HEMATOCRIT 37.2 % (36.0-47.0); HEMOGLOBIN 12.3 g/dl (12.0-15.5); MEAN CORPUSCULAR HEMOGLOBIN 29.3 pg (27.0-33.0); MEAN CORPUSCULAR HGB CONC 33.1 g/dl (32.0-36.5); MEAN CORPUSCULAR VOLUME 88.6 fl (80.0-96.0); PLATELET COUNT, AUTOMATED 292 10^3/uL (150-450); WHITE BLOOD COUNT 9.3 10^3/uL (4.0-10.0)
== END ==
LOC: M LAB 09:00
PROVIDERS: ATTEND Advanced Practice Midwife
DX: Z34.92 Encounter for supervision of normal pregnancy, unspecified, second trimester (principal)

== ENCOUNTER → 2020-12-02 | Outpatient (CLI) | payer OTHER | LOC: M WUC 09:01 | PROVIDERS: ATTEND Advanced Practice Midwife | DX: Z34.92 Encounter for supervision of normal pregnancy, unspecified, second trimester (principal) ==

== ENCOUNTER 2021-01-11 00:39 | Outpatient (CLI) | payer OTHER ==
[~2021-01-11] VITALS: Ht 162.6 cm; Wt 89.6 kg
[2021-01-11 00:54] VITALS: BP 131/67
[2021-01-11] MEDS ORDERED: ACET325C5 PO (01:05)
[2021-01-11] MEDS ORDERED: ACETAMINOPHEN 500 MG TAB PO PRN (01:30)
[2021-01-11 01:36] LABS: APPEARANCE, URINE CLEAR (CLEAR); BACTERIA, URINE AUTO NEGATIVE (NEGATIVE); BILIRUBIN, URINE AUTO NEGATIVE (NEGATIVE); BLOOD, URINE BLOOD NEGATIVE (NEGATIVE); COLOR, URINE STRAW (YELLOW); GLUCOSE, URINE (UA) AUTO NEGATIVE (NEGATIVE); KETONE, URINE AUTO NEGATIVE (NEGATIVE); LEUKOCYTE ESTERASE, URINE AUTO NEGATIVE (NEGATIVE); NITRITE, URINE AUTO NEGATIVE (NEGATIVE); PROTEIN, URINE AUTO NEGATIVE (NEGATIVE); RBC, URINE AUTO 1 /HPF (0-3); SPECIFIC GRAVITY URINE AUTO 1.005 (1.002-1.035); SQUAMOUS EPITHELIAL CELL UR AU 0 /HPF (0-6); UROBILINOGEN, URINE AUTO 0.2 mg/dL (0.0-2.0); WBC, URINE AUTO 1 /HPF (0-3)
[2021-01-11 02:29] VITALS: BP 96/52
[2021-01-11] MEDS ORDERED: LACTATED RINGER'S 1000 ML IV ONE (02:35)
--- NOTE | 2021-01-11 03:23 | IPNPDOC ---
Text Note Date of Service The patient was seen on 01/11/21. NOTE Outpatient 25yo KERRIE 03/01/2021 presents @ 33w0d with complaints of sharp left flank pain that radiates into groin and thighs. Reports good movement. Denies LOF, bleeding or regular UC. Hx significant for kidney stones with previous . Appears uncomfortable, flushed Afebrile, normotensive Abdomen soft, gravid FH 135, Cat I No UC noted on monitor UA/C&S/renal scan VS,Fishbone, I+O VS, Fishbone, I+O Vital Signs Date Time Temp Pulse Resp B/P (MAP) Pulse Ox O2 Delivery O2 Flow Rate FiO2 01/11/21 00:54 97.8 81 18 131/67 (88) 98 Jenn Jay Jan 11, 2021 01:34
[2021-01-11 03:27] VITALS: BP 105/55
--- NOTE | 2021-01-11 03:47 | IPNPDOC ---
Text Note Date of Service The patient was seen on 01/11/21. NOTE Outpatient Prelim sono reports shows mild right hydronephrosis without definite evidence of stones Pt reports feeling better after tylenol and IV hydration Cat I tracing continues Desires discharge. Enc fluids, tylenol, call with increased pain Keep next appt VS,Fishbone, I+O VS, Fishbone, I+O Vital Signs Date Time Temp Pulse Resp B/P (MAP) Pulse Ox O2 Delivery O2 Flow Rate FiO2 01/11/21 03:27 97.9 78 16 105/55 (72) 01/11/21 00:54 98 Jenn Jay Jan 11, 2021 03:45
--- NOTE | 2021-01-11 04:22 | REPVR ---
PROCEDURE INFORMATION: Exam: US Retroperitoneal Limited, Kidneys Exam date and time: 01/11/2021 2:20 AM Age: 25 years old Clinical indication: Abdominal pain; Flank; Left; ; Additional info: Left flank and groin pain TECHNIQUE: Imaging protocol: Real-time ultrasound of the retroperitoneum with image documentation. Examination was focused on the kidneys. COMPARISON: ABD COMPLETE US 08/21/2016 8:57 AM FINDINGS: Right kidney: Right kidney measures 12.1 cm in length. Mild right pelvicaliectasis, likely physiologic in the setting of . No calculi visualized. Left kidney: Left kidney measures 12.1 cm in length. No hydronephrosis. No calculi visualized. Urinary bladder: Unremarkable. Bilateral ureteral jets visualized. Uterus: Intrauterine with heart rate 135 bpm. IMPRESSION: 1. Mild right pelvicaliectasis, likely physiologic in the setting of . 2. Unremarkable left kidney. No hydronephrosis. 3. Bilateral ureteral jets are visualized. Electronically signed by: Filipe Stevenson On 01/11/2021 04:21:27 AM
== END 2021-01-11 03:55 | disposition home or self-care (01) ==
LOC: M LDO 00:39
PROVIDERS: ATTEND Advanced Practice Midwife
DX: O26.893 Other specified pregnancy related conditions, third trimester (principal); Z3A.33 33 weeks gestation of pregnancy; N13.30 Unspecified hydronephrosis; Z79.899 Other long term (current) drug therapy

== ENCOUNTER 2021-01-21 08:08 | Outpatient (CLI) | payer OTHER ==
[~2021-01-21] VITALS: Ht 162.6 cm; Wt 89.8 kg
[~2021-01-21 08:08] MED LIST changes: +ACET325C5 PO
[2021-01-21 08:27] VITALS: BP 109/70
[2021-01-21 09:07] VITALS: BP 121/75
--- NOTE | 2021-01-21 09:32 | IPNPDOC ---
Text Note Date of Service The patient was seen on 01/21/21. NOTE 25 yo at 34 3/7 weeks gestation presents with vaginal bleeding that started after intercourse at 10 pm last night. No pain. The bleeding is minimal now. O: AVSS NAD Abd: NT, gravid FHT: Cat. I toco: none SVE: cx L/C/P, scant blood A/P 25 yo at 34 3/7 with post-coital bleeding Pt reassured rest today pelvic rest fu office as scheduled VS,Fishbone, I+O VS, Fishbone, I+O Vital Signs Date Time Temp Pulse Resp B/P (MAP) Pulse Ox O2 Delivery O2 Flow Rate FiO2 01/21/21 08:27 98.6 114 18 109/70 (83) BETH MILLAN MD Jan 21, 2021 09:32
== END 2021-01-21 09:38 | disposition home or self-care (01) ==
LOC: M LDO 08:08
PROVIDERS: ATTEND Specialist
DX: O46.93 Antepartum hemorrhage, unspecified, third trimester (principal); Z3A.34 34 weeks gestation of pregnancy

== ENCOUNTER → 2021-01-30 | Outpatient (REF) | payer OTHER | LOC: M SFHCWAGY 10:36 | PROVIDERS: ATTEND Advanced Practice Midwife | DX: Z36.85 Encounter for antenatal screening for Streptococcus B (principal); Z3A.35 35 weeks gestation of pregnancy ==

== ENCOUNTER 2021-02-17 19:42 | Outpatient (CLI) | payer OTHER ==
[~2021-02-17] VITALS: Ht 162.6 cm; Wt 92.0 kg
[2021-02-17 20:01] VITALS: BP 114/75
[2021-02-17] MEDS ORDERED: HOME MED LIST COMPLETE! XX SCH (20:15)
--- NOTE | 2021-02-18 10:05 | IPN ---
PROGRESS NOTE DATE: 02/17/2021 SUBJECTIVE: Esperanza is a 25-year-old 3, para 2, 0, 0, 2 at 38 weeks and 2 days with an EDC of 03/01/2021 based on last menstrual period and confirmed by first trimester ultrasound. She presents to labor and delivery today with report of contractions that have been on and off since last evening following sexual intercourse. She does report some positive bloody show. She denies leakage of fluid. The fetus has been active. care was [facility] in the first trimester. course was complicated by history of kidney stones and former smoker. OBSTETRIC HISTORY: December 29, 2014; 40 weeks gestation, 7 pounds 3 ounces female-vaginal delivery uncomplicated. On April 05, 2016; 39 weeks gestation, 7 pounds 8 ounces male-vaginal delivery uncomplicated. OBSTETRIC LABS: A+, antibody screen negative. Syphilis negative. Gonorrhea and chlamydia negative. Hepatitis B negative. Hepatitis C negative. HIV negative. Rubella immune. Urine culture no growth. Gestational diabetic screen normal at 99 and GBS is negative. PAST MEDICAL HISTORY: Kidney stones, pancreatitis. PAST SURGICAL HISTORY: [place] tooth extraction, tonsillectomy, laparoscopic cholecystectomy, ERCP. FAMILY HISTORY: Diabetes, hypertension and breast cancer. SOCIAL HISTORY: The patient is single, however, the father of the baby is at bedside and supportive. She is a former smoker. She denies alcohol and drug use. She denies history of sexually transmitted infections and denies history of abuse physical, sexual and emotional. ALLERGIES: No known drug allergies. CURRENT MEDICATIONS: vitamin. OBJECTIVE: Temperature 97.8, pulse 111, respirations 16, blood pressure 114/75. She is alert and oriented x3. She does not appear uncomfortable with her contractions. heart rate at 130 with moderate variability, positive accelerations, negative decelerations. Contractions appear to be every 3 to 6 minutes; they palpate mild. Abdomen is gravid, cephalic presentation. Estimated weight 7 pounds. Sterile vaginal exam upon initial assessment; 2 cm dilated, 50% effaced, ballotable station. Repeat cervical exam 90 minutes later unchanged. There is a normal amount of bloody show with her exam. ASSESSMENT: Intrauterine at 38 and 2/7 weeks. heart rate is category 1; not in active labor. PLAN: Send the patient home. She is to keep her next scheduled appointment. I did review signs and symptoms of active labor, movement counts, danger signs to report. I reviewed access to care. The patient and her partner have had their questions answered and are agreeable to discharge home.
== END 2021-02-17 22:00 | disposition home or self-care (01) ==
LOC: M LDO 19:42
PROVIDERS: ATTEND Advanced Practice Midwife
DX: O47.1 False labor at or after 37 completed weeks of gestation (principal); Z3A.38 38 weeks gestation of pregnancy; Z87.891 Personal history of nicotine dependence

== ENCOUNTER 2021-02-21 08:37 | Inpatient (IN) | payer OTHER ==
[2021-02-21] VITALS (33 sets, daily range): BP systolic 102–150; BP diastolic 54–85
[2021-02-21] MEDS ORDERED: LACTATED RINGER'S 1000 ML IV STA (08:47)
[2021-02-21] MEDS ORDERED: LR 1,000 ML IV SCH (08:50)
[2021-02-21] MEDS ORDERED: OXYTOCIN DRIP 30 UNITS in IV 1 EA IV PRN (08:50)
[2021-02-21] MEDS ORDERED: LIDOCAINE 1% MDV 20ML VIAL INFIL PRN (08:50)
[2021-02-21] MEDS ORDERED: METHYLERGONOVINE MALEATE 0.2 MG/ML VIAL (J2210) IM PRN (08:50)
[2021-02-21 09:24] LABS: HEMATOCRIT 39.9 % (36.0-47.0); HEMOGLOBIN 13.5 g/dl (12.0-15.5); MEAN CORPUSCULAR HEMOGLOBIN 28.5 pg (27.0-33.0); MEAN CORPUSCULAR HGB CONC 33.8 g/dl (32.0-36.5); MEAN CORPUSCULAR VOLUME 84.2 fl (80.0-96.0); PLATELET COUNT, AUTOMATED 353 10^3/uL (150-450); RED BLOOD COUNT 4.74 10^6/uL (4.00-5.40); WHITE BLOOD COUNT 16.8 10^3/uL (4.0-10.0)
--- NOTE | 2021-02-21 09:31 | HPEPDOC ---
Obstetrical History & Physical General Date of Admission Feb 21, 2021 at 08:44 History of Present Illness Chief Complaint: Contractions, term Age: 25 : 3 Term: 2 Pre-term: 0 Abortions: 0 Livin Care Care: Good Care Dating Final EDC by: LMP EGA at Admission: 38 (+6) Antepartum Course Pre- weight (lbs.): 176 Admission Weight (lbs.): 201 Past Medical History Past Obstetrical History #1: Past Obstetrical History: Primgravida (2014) Type of Delivery: Spontaneous Vaginal Del. Sex of : Female (7#3) Complications: No Past Obstetrical History #2: Past Obstetrical History: Multigravida (2016) Type of Delivery: Spontaneous Vaginal Del. 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 Past Medical History Medical History Kidney stones, pancreatitis Surgical History: Gallbladder, Tonsilectomy, [place] teeth, Other (ercp) Family History Significant Family History: Cancer, Diabetes, Hypertension Social History Marital Status: Family situation: Spouse/partner home Psychosocial History: No pertinent psych hx * Smoker: former Smoker Alcohol: Denies Drugs: denies Abuse Violence Screening Have you been hit/kicked/slapp: No Have you been sexually assault: No Imunizations Tdap status: current Allergies Coded Allergies: No Known Allergies (Unverified , 08/16/19) Medications Scheduled Vit37/Iron/Folic Acid (P[place]ata Chewable Tablet) 1 Each Tab.chew, 1 TAB PO DAILY Physical Examination Physical Examination GENERAL: Alert and oriented times three. BREAST: . ABDOMEN: Gravid and non-tender to touch. FETUS: Is vertex (VTX) by sterile vaginal examination (SVE), fetus is vertex (VTX) by [place]. EFW 8# HEART RATE: Regular rate and rhythm. LUNGS: Clear to auscultation (CTA). EXTREMITIES: No edema. No clonus. 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 Duration: greater than 60 seconds Strength: palpated as moderate Assessment/Plan Assessment Esperanza is a 25-year-old (G)3 para (P)2-0-0-2 at 38+6 weeks by 11-week ultrasound. Presents to Labor and Delivery (L&D) with complaints of UC since 429. Denies LOF, bleeding. Reports good movement. Plan Admit and orient. Graphic Design Specialist and consent. Diet: clear liquid Group B Streptococcus (GBS) negative. Labs and intravenous (IV) per unit protocol. Counseled on Pitocin and induction of labor (IOL). Lactated Ringers (LR): Bolus 500 mL, then at 125 mL/hr. Plans epidural if time Anticipate normal spontaneous delivery (). C-S as appropriate. Jenn Jay CNM Feb 21, 2021 09:31
[2021-02-21] MEDS ORDERED: FENTANYL 2MCG/ML ROPIVACAINE 0.2% IN 0.9% NACL 100ML IVBAG As Ordered ONE (12:03)
[2021-02-21] MEDS ORDERED: diphenhydrAMINE 50MG/ML VIAL (J1200) IV PRN (12:35)
[2021-02-21] MEDS ORDERED: NALOXONE INJ 0.4MG/1ML VIAL (J2310 PER 1MG) IV PRN (12:35)
[2021-02-21] MEDS ORDERED: EPIDURAL/PCA KEYS XX PRN (12:35)
[2021-02-21] MEDS ORDERED: FENTANYL/ROPIVACAINE/NACL BAG 100 ML EPIDURAL SCH (12:35)
[2021-02-21] MEDS ORDERED: REFRIGERATOR IV KEYS XX PRN (12:35)
[2021-02-21] MEDS ORDERED: ePHEDrine SULFATE 25 MG/5 ML(5MG/ML) SYRINGE IV PRN (12:35)
[2021-02-21] MEDS ORDERED: LACTATED RINGER'S 1000 ML IV PRN (12:35)
[2021-02-21] MEDS ORDERED: EPIDURAL COMMENT XX SCH (12:35)
[2021-02-21] MEDS ORDERED: ONDANSETRON 4MG/2ML VIAL IV PRN (12:35)
[2021-02-21] MEDS ORDERED: OXYTOCIN 30 UNITS IN 0.9% NaCl 500ML IV BAG (J2590) As Ordered ONE (15:34)
[2021-02-21] MEDS ORDERED: ACETAMINOPHEN TAB 650MG DOSE (2X325MG) PO PRN (16:10)
[2021-02-21] MEDS ORDERED: RHOGAM 300 MCG (1500 IU) INJ (J2790) IM SCH (16:10)
[2021-02-21] MEDS ORDERED: MOM 30ML SUSPENSION UDC PO PRN (16:10)
[2021-02-21] MEDS ORDERED: IBUPROFEN 600MG TAB PO PRN (16:10)
[2021-02-21] MEDS ORDERED: OXYTOCIN DRIP 30 UNITS in IV 1 EA IV SCH (16:10)
[2021-02-21] MEDS ORDERED: DOCUSATE SODIUM 100MG CAPSULE PO PRN (16:10)
[2021-02-21] MEDS ORDERED: DIBUCAINE 1% OINTMENT 30GM TOP PRN (16:10)
[2021-02-21] MEDS ORDERED: MEASLES,MUMPS,RUBELLA VACCINE INJ (MMR-II) (90707) SC SCH (16:10)
[2021-02-21] MEDS ORDERED: ANUSOL HC CREAM 30GM TOP PRN (16:10)
[2021-02-21] MEDS ORDERED: ACETAMINOPHEN 500 MG TAB PO PRN (16:10)
[2021-02-21] MEDS ORDERED: METHYLERGONOVINE MALEATE 0.2 MG TAB PO PRN (16:10)
--- NOTE | 2021-02-21 16:15 | DNPDOC ---
[facility] Delivery Note Delivery Note DATE OF DELIVERY: 02/21/2021 PREDELIVERY DIAGNOSIS: 38+6/7 weeks' gestation and labor. POST DELIVERY DIAGNOSIS: Delivered. PROCEDURE: Spontaneous vaginal delivery. PROVIDER: Jenn Jay CNM ANESTHESIA: Epidural ESTIMATED BLOOD LOSS: 200 mL. FINDINGS: 8 pound 3 ounce, 3710gm male infant, Score 9/9 no nuchal cord. DELIVERY SUMMARY: Patient is a 25-year-old 3 now para 3-0-0-3 who was admitted to labor and delivery for active labor. She utilized an epidural for labor coping. Artificial rupture of membranes for clear fluid 1350. Fully dil ated 1535. Viable male child delivered AKASH, restituted to LOP @ 1544. Shoulders delivered with ease. Spontaneous respirations, transitioned on maternal abdomen. Cord doubly clamped and cut by FOB under my direction once pulsations ceased. Apgars 9/9. Placenta burrell, intact with 3v cord @ 1556. Fundus firmed with massage and IV premixed pitocin 30mg bolus. EBL 200ml. Cervix, vagina, perineum intact. Sponge sharp and instrument count correct. Parents are naming their son Pallavi. Jenn Jay CNM Feb 21, 2021 16:15
[2021-02-22] MEDS: IBUPROFEN 800 MG TAB PO PRN ×2 (02:26→12:06)
[2021-02-22 06:39] VITALS: BP 104/56
[2021-02-22] MEDS ORDERED: PRENATAL VITAMINS CHEWABLE TABLET PO SCH (09:00)
[2021-02-22] MEDS ORDERED: diphenhydrAMINE 25MG CAP PO ONE (09:50)
[2021-02-22 17:49] VITALS: BP 121/58
== END 2021-02-22 19:23 | disposition home or self-care (01) | DRG 560 ==
LOC: M LDO 08:37 → M LDI 08:44 → M OBS 20:05
PROVIDERS: ADMIT Advanced Practice Midwife; ATTEND Advanced Practice Midwife
PROC: 10E0XZZ Delivery of Products of Conception, External Approach (ICD-10-PCS; principal; 2021-02-21)
PROC: 10907ZC Drainage of Amniotic Fluid, Therapeutic from Products of Conception, Via Natural or Artificial Opening (ICD-10-PCS; 2021-02-21)
DX: O80 Encounter for full-term uncomplicated delivery (principal); Z3A.38 38 weeks gestation of pregnancy; Z37.0 Single live birth

== ENCOUNTER → 2021-05-23 | Outpatient (REF) | payer OTHER ==
[2021-05-23 11:22] LABS: BASO # 0.1 10^3/uL (0.0-0.2); BASO % 0.5 % (0.0-1.0); EOS # 2.6 10^3/uL (0.0-0.5); HEMATOCRIT 41.7 % (36.0-47.0); HEMOGLOBIN 13.5 g/dl (12.0-15.5); LYMPH # 2.2 10^3/uL (1.5-5.0); LYMPH % 21.9 % (24.0-44.0); MEAN CORPUSCULAR HGB CONC 32.4 g/dl (32.0-36.5); MEAN CORPUSCULAR VOLUME 86.3 fl (80.0-96.0); MONO # 0.5 10^3/uL (0.0-0.8); MONO % 4.6 % (2.0-8.0); NEUTROPHILS # 4.9 10^3/uL (1.5-8.5); NEUTROPHILS % 47.6 % (36.0-66.0); PLATELET COUNT, AUTOMATED 326 10^3/uL (150-450); RED BLOOD COUNT 4.83 10^6/uL (4.00-5.40); WHITE BLOOD COUNT 10.2 10^3/uL (4.0-10.0)
[2021-05-23 11:48] LABS: EOS % 25.1 % (0.0-3.0)
[2021-05-23 11:59] LABS: ALBUMIN 3.7 GM/DL (3.2-5.2); ALT/SGPT 46 U/L (12-78); AMYLASE 24 U/L (25-115); BILIRUBIN,TOTAL 0.5 MG/DL (0.2-1.0); BLOOD UREA NITROGEN 10 MG/DL (7-18); CALCIUM LEVEL 8.8 MG/DL (8.5-10.1); CARBON DIOXIDE LEVEL 27 MEQ/L (21-32); CHLORIDE LEVEL 109 MEQ/L (98-107); GLOMERULAR FILTRATION RATE > 60.0 (>60); GLUCOSE, FASTING 82 MG/DL (70-100); LIPASE 140 U/L (73-393); POTASSIUM SERUM 3.9 MEQ/L (3.5-5.1); SODIUM LEVEL 143 MEQ/L (136-145); TOTAL PROTEIN 7.4 GM/DL (6.4-8.2)
== END ==
LOC: M SFHCCLAY 08:59
PROVIDERS: ATTEND Physician Assistant
DX: R10.13 Epigastric pain (principal)

== ENCOUNTER → 2021-05-30 | Outpatient (REF) | payer OTHER | LOC: M SFHCCLAY 14:18 | PROVIDERS: ATTEND Family Medicine | DX: F41.9 Anxiety disorder, unspecified (principal) ==

== ENCOUNTER → 2021-07-11 | Outpatient (REF) | payer OTHER ==
[2021-07-11 11:56] LABS: BASO % 0.4 % (0.0-1.0); EOS # 1.2 10^3/uL (0.0-0.5); EOS % 13.9 % (0.0-3.0); HEMATOCRIT 42.6 % (36.0-47.0); HEMOGLOBIN 13.7 g/dl (12.0-15.5); LYMPH # 1.9 10^3/uL (1.5-5.0); LYMPH % 22.8 % (24.0-44.0); MEAN CORPUSCULAR HEMOGLOBIN 28.2 pg (27.0-33.0); MEAN CORPUSCULAR HGB CONC 32.2 g/dl (32.0-36.5); MEAN CORPUSCULAR VOLUME 87.7 fl (80.0-96.0); MONO # 0.6 10^3/uL (0.0-0.8); MONO % 6.5 % (2.0-8.0); NEUTROPHILS # 4.7 10^3/uL (1.5-8.5); NEUTROPHILS % 56.2 % (36.0-66.0); PLATELET COUNT, AUTOMATED 328 10^3/uL (150-450); RED BLOOD COUNT 4.86 10^6/uL (4.00-5.40); WHITE BLOOD COUNT 8.4 10^3/uL (4.0-10.0)
[2021-07-11 12:28] LABS: FREE T4 0.86 NG/DL (0.76-1.46); THYROID STIMULATING HORMONE 1.59 uIU/ML (0.358-3.740)
[2021-07-14 16:08] LABS: H PYLORI SERUM QUANT IGA <9.0 units (0.0-8.9); H PYLORI SERUM QUANT IGM 9.1 units (0.0-8.9); H PYLORI SERUM QUANT IgG ABY 0.41 (0.00-0.79)
== END ==
LOC: M SFHCCLAY 09:24
PROVIDERS: ATTEND Family Medicine
DX: R00.2 Palpitations (principal); R10.84 Generalized abdominal pain

== ENCOUNTER 2021-08-14 11:42 | Emergency (ER) | payer OTHER ==
[~2021-08-14] VITALS: Ht 162.6 cm; Wt 85.9 kg
[2021-08-14 11:42] VITALS: BP 138/90
[~2021-08-14 11:42] MED LIST changes: -SERT50TA29
[2021-08-14] MEDS ORDERED: SERT50TA29 (11:49)
[2021-08-14 12:28] LABS: BASO % 0.4 % (0.0-1.0); EOS # 0.4 10^3/uL (0.0-0.5); EOS % 4.7 % (0.0-3.0); HEMATOCRIT 40.9 % (36.0-47.0); HEMOGLOBIN 13.1 g/dl (12.0-15.5); LYMPH # 2.2 10^3/uL (1.5-5.0); MEAN CORPUSCULAR HEMOGLOBIN 27.9 pg (27.0-33.0); MEAN CORPUSCULAR VOLUME 87.2 fl (80.0-96.0); MONO # 0.5 10^3/uL (0.0-0.8); MONO % 6.2 % (2.0-8.0); NEUTROPHILS # 4.6 10^3/uL (1.5-8.5); NEUTROPHILS % 59.4 % (36.0-66.0); PLATELET COUNT, AUTOMATED 308 10^3/uL (150-450); RED BLOOD COUNT 4.69 10^6/uL (4.00-5.40); WHITE BLOOD COUNT 7.7 10^3/uL (4.0-10.0)
[2021-08-14 13:06] LABS: ALBUMIN 3.4 GM/DL (3.2-5.2); ALT/SGPT 25 U/L (12-78); BILIRUBIN,DIRECT 0.1 MG/DL (0.0-0.2); BILIRUBIN,TOTAL 0.2 MG/DL (0.2-1.0); BLOOD UREA NITROGEN 10 MG/DL (7-18); CALCIUM LEVEL 8.5 MG/DL (8.5-10.1); CARBON DIOXIDE LEVEL 29 MEQ/L (21-32); CHLORIDE LEVEL 106 MEQ/L (98-107); GLOMERULAR FILTRATION RATE > 60.0 (>60); GLUCOSE, FASTING 79 MG/DL (70-100); HCG, SERUM QUANTITATIVE < 1.0 MIU/ML; LIPASE 176 U/L (73-393); POTASSIUM SERUM 3.8 MEQ/L (3.5-5.1); SODIUM LEVEL 140 MEQ/L (136-145)
[2021-08-14] MEDS ORDERED: ACETAMINOPHEN 325 MG TAB PO ONE (17:35)
[2021-08-14] MEDS ORDERED: NS 1,000 ML IV ONE (17:35)
[2021-08-14] MEDS ORDERED: ISOVUE-370 76% 100ML VIAL As Ordered ONE (17:39)
== END 2021-08-14 19:59 | disposition home or self-care (01) ==
LOC: M ED 11:42
DX: N20.0 Calculus of kidney (principal); I88.0 Nonspecific mesenteric lymphadenitis; N83.11 Corpus luteum cyst of right ovary; K76.0 Fatty (change of) liver, not elsewhere classified; R19.7 Diarrhea, unspecified; Z90.49 Acquired absence of other specified parts of digestive tract; R51.9 Headache, unspecified; F17.290 Nicotine dependence, other tobacco product, uncomplicated; Z79.899 Other long term (current) drug therapy
CPT/HCPCS: 74177; 80048; 80076; 81001; 83690; 84702; 85025; 96360; 96361; 99284; Q9967

== ENCOUNTER → 2021-08-14 | Outpatient (REF) | payer OTHER ==
[~2021-08-14] MED LIST changes: +SERT50TA29
== END ==
LOC: M SFHCCLAY 15:34
PROVIDERS: ATTEND Nurse Practitioner Family
DX: R35.0 Frequency of micturition (principal)

== ENCOUNTER → 2021-11-07 | Outpatient (REF) | payer OTHER ==
[~2021-11-07] MED LIST changes: +SERT50TA29
[2021-11-07 12:10] LABS: BASO % 0.7 % (0.0-1.0); EOS # 0.1 10^3/uL (0.0-0.5); EOS % 2.6 % (0.0-3.0); HEMATOCRIT 40.4 % (36.0-47.0); HEMOGLOBIN 13.1 g/dl (12.0-15.5); LYMPH # 1.1 10^3/uL (1.5-5.0); LYMPH % 24.2 % (24.0-44.0); MEAN CORPUSCULAR HEMOGLOBIN 28.4 pg (27.0-33.0); MEAN CORPUSCULAR HGB CONC 32.4 g/dl (32.0-36.5); MEAN CORPUSCULAR VOLUME 87.4 fl (80.0-96.0); MONO # 0.7 10^3/uL (0.0-0.8); MONO % 14.8 % (2.0-8.0); NEUTROPHILS # 2.6 10^3/uL (1.5-8.5); NEUTROPHILS % 57.5 % (36.0-66.0); PLATELET COUNT, AUTOMATED 295 10^3/uL (150-450); RED BLOOD COUNT 4.62 10^6/uL (4.00-5.40); WHITE BLOOD COUNT 4.6 10^3/uL (4.0-10.0)
[2021-11-07 12:26] LABS: INR 0.92; PROTHROMBIN TIME 12.8 SECONDS (12.7-14.5)
[2021-11-07 12:27] LABS: PARTIAL THROMBOPLASTIN TIME 34.2 SECONDS (25.9-37.0)
== END ==
LOC: M SFHCCLAY 09:21
PROVIDERS: ATTEND Family Medicine
DX: D72.10 Eosinophilia, unspecified (principal); R23.8 Other skin changes

== ENCOUNTER → 2022-02-23 | Outpatient (CLI) | payer OTHER ==
[2022-02-23 12:29] LABS: HEMOGLOBIN 13.2 g/dl (12.0-15.5); MEAN CORPUSCULAR HEMOGLOBIN 28.4 pg (27.0-33.0); PLATELET COUNT, AUTOMATED 340 10^3/uL (150-450); RED BLOOD COUNT 4.65 10^6/uL (4.00-5.40); WHITE BLOOD COUNT 7.6 10^3/uL (4.0-10.0)
[2022-02-23 14:03] LABS: HIV 1&2 SCREEN CENTAUR NEGATIVE (NEGATIVE)
[2022-02-23 14:13] LABS: GC DNA AMPLIFICATION NEGATIVE (NEGATIVE)
== END ==
LOC: M LAB 11:00
PROVIDERS: ATTEND Physician Assistant Medical
DX: Z34.81 Encounter for supervision of other normal pregnancy, first trimester (principal)

== ENCOUNTER → 2022-03-24 | Outpatient (CLI) | payer OTHER ==
[~2022-03-24] MED LIST changes: +ACET-907 PO; +COLA100C5 PO; +IBUP80TA PO; +OXYC1TAB23 PO; -SERT50TA29; +SERT50TA29 PO
== END ==
LOC: M LABSMTC 09:41
PROVIDERS: ATTEND Anesthesiology
DX: Z01.812 Encounter for preprocedural laboratory examination (principal); Z20.822 Contact with and (suspected) exposure to COVID-19

== ENCOUNTER 2022-03-25 11:57 | Day surgery (SDC) | payer OTHER ==
[~2022-03-25] VITALS: Ht 162.6 cm; Wt 87.6 kg
[~2022-03-25 11:57] MED LIST changes: -ACET-907 PO; -COLA100C5 PO; -IBUP80TA PO; -OXYC1TAB23 PO
[2022-03-25] MEDS ORDERED: LR 1,000 ML IV SCH ×3 (12:20→15:15)
[2022-03-25] MEDS ORDERED: ACET-907 PO (12:24)
[2022-03-25] MEDS ORDERED: SILVER NITRATE APPLICATOR (1 = QTY 10) As Ordered ONE (12:34)
[2022-03-25] MEDS ORDERED: SCOPOLAMINE 1MG TRANSDERMAL PATCH TOP ONE (12:40)
[2022-03-25 13:01] LABS: HEMATOCRIT 40.9 % (36.0-47.0); HEMOGLOBIN 13.5 g/dl (12.0-15.5); MEAN CORPUSCULAR HEMOGLOBIN 27.8 pg (27.0-33.0); MEAN CORPUSCULAR VOLUME 84.3 fl (80.0-96.0); PLATELET COUNT, AUTOMATED 308 10^3/uL (150-450); RED BLOOD COUNT 4.85 10^6/uL (4.00-5.40); WHITE BLOOD COUNT 9.1 10^3/uL (4.0-10.0)
[2022-03-25] MEDS: DOXYCYCLINE HYCLATE 100 MG in D5W MINI-BAG PLUS 100 ML IV SCH ×2 (13:12→13:38)
[2022-03-25 13:13] LABS: INR 0.87; PROTHROMBIN TIME 12.2 SECONDS (12.7-14.5)
[2022-03-25] MEDS ORDERED: SUGAMMADEX SODIUM 500 MG/5 ML VIAL (BRIDION) As Ordered ONE (13:38)
[2022-03-25] MEDS ORDERED: dexameTHASONE 4 MG/ML 1ML VIAL (J1100 PER 1MG) As Ordered ONE (13:38)
[2022-03-25] MEDS ORDERED: LIDOCAINE 2% 100MG/5ML SDV (FOR ANES.) As Ordered ONE (13:38)
[2022-03-25] MEDS ORDERED: MIDAZOLAM INJ 2MG/2ML VIAL (J2250 PER 1MG) As Ordered ONE (13:38)
[2022-03-25] MEDS ORDERED: METOCLOPRAMIDE INJ 10MG/2ML VIAL (J2765 PER 1) As Ordered ONE (13:38)
[2022-03-25] MEDS ORDERED: KETOROLAC 60MG 2ML VIAL As Ordered ONE (13:38)
[2022-03-25] MEDS ORDERED: MORPHINE 10 MG/ML 1ML VIAL As Ordered ONE (13:38)
[2022-03-25] MEDS ORDERED: fentaNYL 100 MCG/2 ML INJECTION As Ordered ONE (13:38)
[2022-03-25] MEDS ORDERED: propofoL 200 MG/20 ML VIAL As Ordered ONE (13:38)
[2022-03-25] MEDS ORDERED: ONDANSETRON 4MG 2ML VIAL As Ordered ONE (13:38)
[2022-03-25] MEDS ORDERED: METHYLERGONOVINE MALEATE 0.2 MG/ML VIAL (J2210) As Ordered ONE (13:38)
[2022-03-25] MEDS ORDERED: ROCURONIUM BROMIDE 50 MG/5 ML VIAL As Ordered ONE (13:38)
[2022-03-25] MEDS ORDERED: ACETAMINOPHEN 1000MG 100ML IV BTL (OFIRMEV) (J0131 PER 10MG) As Ordered ONE (13:42)
[2022-03-25] MEDS ORDERED: oxyCODONE 5MG TAB PO PRN (14:35)
[2022-03-25] MEDS ORDERED: HYDROMORPHONE HCL 0.5 MG/ 0.5 ML SYRINGE (J1170 PER 1) IV PRN (14:35)
[2022-03-25] MEDS: ONDANSETRON 4MG 2ML VIAL IV PRN ×2 (14:52→14:53)
[2022-03-25] MEDS ORDERED: OXYC1TAB23 PO (14:55)
[2022-03-25] MEDS ORDERED: IBUP80TA PO (14:56)
[2022-03-25] MEDS ORDERED: ONDA4TAB6 PO (14:57)
[2022-03-25] MEDS ORDERED: COLA100C5 PO (14:57)
[2022-03-25] MEDS ORDERED: ONDANSETRON 4MG 2ML VIAL IV PRN (15:15)
[2022-03-25 18:20] VITALS: BP 111/52
== END 2022-03-25 18:33 | disposition home or self-care (01) ==
LOC: M SDC 11:57
PROVIDERS: ATTEND Obstetrics & Gynecology
DX: O73.1 Retained portions of placenta and membranes, without hemorrhage (principal); Z79.899 Other long term (current) drug therapy; Z79.2 Long term (current) use of antibiotics; Z88.4 Allergy status to anesthetic agent; F17.290 Nicotine dependence, other tobacco product, uncomplicated
CPT/HCPCS: 36415; 59821; 76815; 85027; 85384; 85610; 86850; 86900; 86901; 88305; J0131; J1100; J1885; J2210; J2250; J2270; J2405; J2765; J3010

== ENCOUNTER → 2022-09-22 | Outpatient (REF) | payer OTHER ==
[~2022-09-22] MED LIST changes: +ACET-907 PO; +COLA100C5 PO; +IBUP80TA PO; +OXYC1TAB23 PO
== END ==
LOC: M SFHCCLAY 16:19
PROVIDERS: ATTEND Physician Assistant
DX: L02.31 Cutaneous abscess of buttock (principal)

== ENCOUNTER → 2022-12-18 | Outpatient (REF) | payer OTHER ==
[2022-12-18 17:29] LABS: BASO # 0.1 10^3/uL (0.0-0.2); BASO % 0.6 % (0.0-1.0); EOS # 0.4 10^3/uL (0.0-0.5); EOS % 5.5 % (0.0-3.0); HEMATOCRIT 38.6 % (36.0-47.0); HEMOGLOBIN 12.3 g/dl (12.0-15.5); LYMPH # 2.5 10^3/uL (1.5-5.0); LYMPH % 31.4 % (24.0-44.0); MEAN CORPUSCULAR HEMOGLOBIN 25.8 pg (27.0-33.0); MEAN CORPUSCULAR HGB CONC 31.9 g/dl (32.0-36.5); MEAN CORPUSCULAR VOLUME 80.9 fl (80.0-96.0); MONO # 0.7 10^3/uL (0.0-0.8); MONO % 8.8 % (2.0-8.0); NEUTROPHILS # 4.2 10^3/uL (1.5-8.5); NEUTROPHILS % 53.6 % (36.0-66.0); PLATELET COUNT, AUTOMATED 311 10^3/uL (150-450); RED BLOOD COUNT 4.77 10^6/uL (4.00-5.40); WHITE BLOOD COUNT 7.8 10^3/uL (4.0-10.0)
[2022-12-18 17:53] LABS: ALBUMIN 3.5 G/DL (3.2-5.2); ALKALINE PHOSPHATASE 100 U/L (46-116); ALT/SGPT 25 U/L (7.0-40); AST/SGOT 18 U/L (<34); BILIRUBIN,TOTAL 0.3 MG/DL (0.3-1.2); BLOOD UREA NITROGEN 9 MG/DL (9-23); CALCIUM LEVEL 8.8 MG/DL (8.5-10.1); CARBON DIOXIDE LEVEL 29 MMOL/L (20-31); CHLORIDE LEVEL 108 MMOL/L (98-107); CREATININE FOR GFR 0.66 MG/DL (0.55-1.30); GLOMERULAR FILTRATION RATE > 60.0 (>60); GLUCOSE, FASTING 78 MG/DL (60-100); POTASSIUM SERUM 4.4 MMOL/L (3.5-5.1); SODIUM LEVEL 140 MMOL/L (136-145); TOTAL PROTEIN 6.9 G/DL (5.7-8.2)
[2022-12-21 14:37] LABS: EBV VIRAL CAPSID AG IgM <36.0 U/mL (0.0-35.9)
== END ==
LOC: M SFHCCLAY 11:17
PROVIDERS: ATTEND Physician Assistant
DX: R50.9 Fever, unspecified (principal)

== ENCOUNTER → 2023-01-08 | Outpatient (REF) | payer OTHER | LOC: M SFHCWAGY 16:52 | PROVIDERS: ATTEND Nurse Practitioner Family | DX: Z11.3 Encounter for screening for infections with a predominantly sexual mode of transmission (principal) ==

== ENCOUNTER → 2023-07-21 | Outpatient (CLI) | payer OTHER | LOC: M PLALAB 09:30 | PROVIDERS: ATTEND Advanced Practice Midwife | DX: Z34.80 Encounter for supervision of other normal pregnancy, unspecified trimester (principal) ==

== ENCOUNTER → 2023-07-21 | Outpatient (CLI) | payer OTHER ==
[2023-07-21 14:05] LABS: HEMATOCRIT 39.9 % (36.0-47.0); HEMOGLOBIN 13.2 g/dl (12.0-15.5); MEAN CORPUSCULAR HEMOGLOBIN 27.1 pg (27.0-33.0); MEAN CORPUSCULAR HGB CONC 33.1 g/dl (32.0-36.5); MEAN CORPUSCULAR VOLUME 81.9 fl (80.0-96.0); PLATELET COUNT, AUTOMATED 361 10^3/uL (150-450); RED BLOOD COUNT 4.87 10^6/uL (4.00-5.40); WHITE BLOOD COUNT 8.5 10^3/uL (4.0-10.0)
[2023-07-21 14:59] LABS: HIV 1&2 SCREEN NEGATIVE (NEGATIVE)
[2023-07-21 15:08] LABS: HEPATITIS C VIRUS ABY INDEX 0.04 INDEX (<0.8)
== END ==
LOC: M PLALAB 09:32
PROVIDERS: ATTEND Obstetrics & Gynecology
DX: Z34.91 Encounter for supervision of normal pregnancy, unspecified, first trimester (principal)

== ENCOUNTER → 2023-08-29 | Outpatient (REF) | payer OTHER ==
[2023-08-29 18:55] LABS: RSV AMPLIFICATION NEGATIVE (NEGATIVE)
== END ==
LOC: M LAB REF 17:19
PROVIDERS: ATTEND Physician Assistant
DX: R68.83 Chills (without fever) (principal)

== ENCOUNTER 2023-08-31 12:41 | Emergency (ER) | payer OTHER ==
[~2023-08-31] VITALS: Ht 162.6 cm; Wt 94.4 kg
[2023-08-31] MEDS ORDERED: AMOX500C PO (12:59)
[2023-08-31 14:32] LABS: BASO % 0.3 % (0.0-1.0); EOS % 0.3 % (0.0-3.0); HEMATOCRIT 36.3 % (36.0-47.0); HEMOGLOBIN 12.5 g/dl (12.0-15.5); LYMPH # 1.4 10^3/uL (1.5-5.0); LYMPH % 11.5 % (24.0-44.0); MEAN CORPUSCULAR HEMOGLOBIN 27.7 pg (27.0-33.0); MEAN CORPUSCULAR HGB CONC 34.4 g/dl (32.0-36.5); MEAN CORPUSCULAR VOLUME 80.3 fl (80.0-96.0); MONO # 0.8 10^3/uL (0.0-0.8); MONO % 6.9 % (2.0-8.0); NEUTROPHILS # 9.5 10^3/uL (1.5-8.5); NEUTROPHILS % 80.5 % (36.0-66.0); PLATELET COUNT, AUTOMATED 307 10^3/uL (150-450); RED BLOOD COUNT 4.52 10^6/uL (4.00-5.40); WHITE BLOOD COUNT 11.7 10^3/uL (4.0-10.0)
[2023-08-31 14:57] LABS: BLOOD UREA NITROGEN 6 MG/DL (9-23); CALCIUM LEVEL 8.3 MG/DL (8.5-10.1); CARBON DIOXIDE LEVEL 24 MMOL/L (20-31); CHLORIDE LEVEL 105 MMOL/L (98-107); CREATININE FOR GFR 0.48 MG/DL (0.55-1.30); GLOMERULAR FILTRATION RATE > 60.0 (>60); GLUCOSE, FASTING 78 MG/DL (60-100); POTASSIUM SERUM 3.5 MMOL/L (3.5-5.1); SODIUM LEVEL 135 MMOL/L (136-145)
[2023-08-31 16:47] LABS: HCG, SERUM QUALITATIVE POSITIVE (NEGATIVE)
[2023-08-31] MEDS: NS 1,000 ML IV ONE (16:50)
[2023-08-31] MEDS: ACETAMINOPHEN 500 MG TAB PO ONE (16:50)
[2023-08-31] MEDS ORDERED: ISOVUE-370 76% 100ML VIAL As Ordered ONE (17:00)
[2023-08-31] MEDS: KETOROLAC 30 MG/ML 1ML VIAL IV ONE (17:23)
[2023-08-31] MEDS: AMPICILLIN SOD/SULBACTAM SOD 3 GM in D5W MINI-BAG PLUS 100 ML IV ONE (17:24)
[2023-08-31 17:37] LABS: ERYTHROCYTE SEDIMENTATION RATE 76 mm/hr (0-20)
[2023-08-31 17:46] VITALS: BP 102/64; TEMP 97.8; O2SAT 98
[2023-08-31 18:40] LABS: MONO SCRN NEGATIVE (NEGATIVE)
[2023-08-31] MEDS ORDERED: PRED20TA PO (19:02)
[2023-08-31] MEDS ORDERED: AMOX875T PO (19:02)
== END 2023-08-31 19:15 | disposition home or self-care (01) ==
LOC: M ED 12:41
DX: J02.0 Streptococcal pharyngitis (principal); Z88.8 Allergy status to other drugs, medicaments and biological substances; Z79.2 Long term (current) use of antibiotics; Z79.52 Long term (current) use of systemic steroids; Z79.810 Long term (current) use of selective estrogen receptor modulators (SERMs)
CPT/HCPCS: 70491; 80048; 83605; 84703; 85025; 85652; 86140; 86308; 87040; 87486; 87581; 87633; 87798; 96361; 96365; 96366; 96374; 99283; J0295; J1885; Q9967

== ENCOUNTER → 2023-09-14 | Outpatient (CLI) | payer OTHER ==
[~2023-09-14] MED LIST changes: +AMOX500C PO; +AMOX875T PO; +PRED20TA PO
== END ==
LOC: M WHC 09:01
PROVIDERS: ATTEND Obstetrics & Gynecology
DX: Z34.92 Encounter for supervision of normal pregnancy, unspecified, second trimester (principal)

== ENCOUNTER → 2023-09-14 | Outpatient (CLI) | payer OTHER | LOC: M PLALAB 10:03 | PROVIDERS: ATTEND Obstetrics & Gynecology | DX: Z34.81 Encounter for supervision of other normal pregnancy, first trimester (principal) ==

== ENCOUNTER → 2023-10-21 | Outpatient (REF) | payer OTHER | LOC: M PLALAB 08:59 | PROVIDERS: ATTEND Advanced Practice Midwife | DX: Z3A.24 24 weeks gestation of pregnancy (principal) ==

== ENCOUNTER → 2023-10-21 | Outpatient (CLI) | payer OTHER ==
[2023-10-21 13:25] LABS: HEMATOCRIT 36.5 % (36.0-47.0); HEMOGLOBIN 11.9 g/dl (12.0-15.5); MEAN CORPUSCULAR HEMOGLOBIN 27.5 pg (27.0-33.0); MEAN CORPUSCULAR HGB CONC 32.6 g/dl (32.0-36.5); MEAN CORPUSCULAR VOLUME 84.5 fl (80.0-96.0); PLATELET COUNT, AUTOMATED 362 10^3/uL (150-450); RED BLOOD COUNT 4.32 10^6/uL (4.00-5.40); WHITE BLOOD COUNT 8.6 10^3/uL (4.0-10.0)
== END ==
LOC: M PLALAB 08:34
PROVIDERS: ATTEND Obstetrics & Gynecology
DX: Z34.82 Encounter for supervision of other normal pregnancy, second trimester (principal)

== ENCOUNTER → 2023-11-09 | Outpatient (REF) | payer OTHER ==
[2023-11-09 18:15] LABS: BLOOD UREA NITROGEN < 5 MG/DL (9-23); CALCIUM LEVEL 8.4 MG/DL (8.5-10.1); CARBON DIOXIDE LEVEL 23 MMOL/L (20-31); CHLORIDE LEVEL 106 MMOL/L (98-107); CREATININE FOR GFR 0.53 MG/DL (0.55-1.30); GLOMERULAR FILTRATION RATE > 60.0 (>60); GLUCOSE, FASTING 81 MG/DL (60-100); MAGNESIUM LEVEL 1.7 MG/DL (1.8-2.4); POTASSIUM SERUM 4.1 MMOL/L (3.5-5.1); SODIUM LEVEL 137 MMOL/L (136-145)
== END ==
LOC: M SFHCCLAY 11:33
PROVIDERS: ATTEND Family Medicine
DX: E87.6 Hypokalemia (principal); R79.0 Abnormal level of blood mineral

== ENCOUNTER → 2024-01-13 | Outpatient (REF) | payer OTHER ==
[~2024-01-13] MED LIST changes: +ONDA-282 PO; -ONDA4TAB6 PO
== END ==
LOC: M SFHCWAGY 17:04
PROVIDERS: ATTEND Obstetrics & Gynecology
DX: Z36.89 Encounter for other specified antenatal screening (principal); Z3A.36 36 weeks gestation of pregnancy

== ENCOUNTER 2024-01-21 13:42 | Outpatient (CLI) | payer OTHER ==
[2024-01-21 17:18] LABS: HEMATOCRIT 35.1 % (36.0-47.0); HEMOGLOBIN 11.8 g/dl (12.0-15.5); MEAN CORPUSCULAR HEMOGLOBIN 26.6 pg (27.0-33.0); MEAN CORPUSCULAR HGB CONC 33.6 g/dl (32.0-36.5); MEAN CORPUSCULAR VOLUME 79.1 fl (80.0-96.0); PLATELET COUNT, AUTOMATED 425 10^3/uL (150-450); RED BLOOD COUNT 4.44 10^6/uL (4.00-5.40); WHITE BLOOD COUNT 12.6 10^3/uL (4.0-10.0)
[2024-01-21 18:03] LABS: ALT/SGPT 10 U/L (7.0-40); AST/SGOT 11 U/L (<34); CREATININE FOR GFR 0.58 MG/DL (0.55-1.30); GLOMERULAR FILTRATION RATE > 60.0 (>60); LDH LACTATE DEHYDROGENASE 139 U/L (120-246); URIC ACID 5.1 MG/DL (3.1-7.8)
[2024-01-21 18:42] LABS: BILIRUBIN,TOTAL 0.3 MG/DL (0.3-1.2)
[2024-01-21 18:45] LABS: CREATININE,RANDOM URINE 141.9 MG/DL; TOTAL PROTEIN,RANDOM URINE 33.4 MG/DL (0.0-14.0)
== END 2024-01-21 14:46 | disposition home or self-care (01) ==
LOC: M LDO 13:42
PROVIDERS: ATTEND Advanced Practice Midwife
DX: O26.893 Other specified pregnancy related conditions, third trimester (principal); R51.0 Headache with orthostatic component, not elsewhere classified; Z3A.37 37 weeks gestation of pregnancy
CPT/HCPCS: 59025; 82247; 82570; 83615; 84156; 84450; 84460; 84550; 85027; G0463

== ENCOUNTER 2024-01-25 10:28 | Inpatient (IN) | payer OTHER ==
[~2024-01-25] VITALS: Ht 162.6 cm; Wt 103.2 kg
[2024-01-25] MEDS ORDERED: CARBOPROST TROMETHAMINE 250 MCG/ML AMP IM PRN (13:55)
[2024-01-25] MEDS ORDERED: OXYTOCIN DRIP 30 UNITS in IV 1 EA IV PRN (13:55)
[2024-01-25] MEDS ORDERED: LIDOCAINE 1% MDV 20ML VIAL INFIL PRN (13:55)
[2024-01-25] MEDS ORDERED: TRANEXAMIC ACID INJection 1,000 MG in NS 100 ML IV PRN (13:55)
[2024-01-25 15:05] LABS: HEMATOCRIT 36.1 % (36.0-47.0); MEAN CORPUSCULAR HEMOGLOBIN 26.4 pg (27.0-33.0); MEAN CORPUSCULAR HGB CONC 33.2 g/dl (32.0-36.5); MEAN CORPUSCULAR VOLUME 79.5 fl (80.0-96.0); PLATELET COUNT, AUTOMATED 480 10^3/uL (150-450); RED BLOOD COUNT 4.54 10^6/uL (4.00-5.40); WHITE BLOOD COUNT 14.8 10^3/uL (4.0-10.0)
[2024-01-25 15:34] LABS: URIC ACID 4.7 MG/DL (3.1-7.8)
[2024-01-25 15:36] LABS: LDH LACTATE DEHYDROGENASE 153 U/L (120-246)
[2024-01-25 15:37] LABS: ALT/SGPT 12 U/L (7.0-40); AST/SGOT 12 U/L (<34); BILIRUBIN,TOTAL 0.3 MG/DL (0.3-1.2); CREATININE FOR GFR 0.49 MG/DL (0.55-1.30); CREATININE,RANDOM URINE 90.5 MG/DL; GLOMERULAR FILTRATION RATE > 60.0 (>60)
[2024-01-25] MEDS: miSOPROStol 50MCG 1/2 TABLET PO SCH (15:52)
[2024-01-25 16:17] LABS: HEPATITIS C VIRUS ABY INDEX < 0.02 INDEX (<0.8)
[2024-01-25] MEDS ORDERED: ePHEDrine SULFATE 25 MG/5 ML(5MG/ML) SYRINGE IVP PRN ×2 (18:45→19:00)
[2024-01-25] MEDS ORDERED: diphenhydrAMINE 50MG/ML VIAL IV PRN (18:45)
[2024-01-25] MEDS ORDERED: NALOXONE INJ 0.4MG/1ML VIAL IV PRN (18:45)
[2024-01-25] MEDS ORDERED: ONDANSETRON 4MG 2ML VIAL IV PRN (18:45)
[2024-01-25] MEDS ORDERED: FENTANYL/ROPIVACAINE/NACL BAG 100 ML EPIDURAL SCH (18:45)
[2024-01-25] MEDS ORDERED: EPIDURAL/PCA KEYS XX PRN (18:45)
[2024-01-25] MEDS ORDERED: FENTANYL 2MCG/ML ROPIVACAINE 0.2% IN 0.9% NACL 100ML IVBAG As Ordered ONE (18:49)
[2024-01-25] MEDS ORDERED: LR 500 ML IV PRN (19:00)
[2024-01-25] MEDS: ROPIVACAINE HCL IVBAG 200 ML EPIDURAL SCH (19:26)
[2024-01-25] MEDS: LR 500 ML IV PRN (19:29)
[2024-01-25] MEDS ORDERED: IBUPROFEN 600MG TAB PO PRN (20:45)
[2024-01-25] MEDS ORDERED: METHYLERGONOVINE MALEATE 0.2 MG TAB PO PRN (20:45)
[2024-01-25] MEDS ORDERED: ANUSOL HC CREAM 30GM TOP PRN (20:45)
[2024-01-25] MEDS ORDERED: ACETAMINOPHEN TAB 650MG DOSE (2X325MG) PO PRN (20:45)
[2024-01-25] MEDS: OXYTOCIN DRIP 30 UNITS in IV 1 EA IV SCH (20:45)
[2024-01-25] MEDS ORDERED: MOM 30ML SUSPENSION UDC PO PRN (20:45)
[2024-01-25] MEDS ORDERED: CALCIUM CARBONATE 500 MG CHEW U/D PO PRN (20:45)
[2024-01-25] MEDS ORDERED: RHO(D) IMMUNE GLOBULIN/MALTOSE 500MCG(2500IU)/2.2ML VIAL (WINRHO) IM SCH (20:45)
[2024-01-25] MEDS ORDERED: DIBUCAINE 1% OINTMENT 30GM TOP PRN (20:45)
[2024-01-25 21:50] VITALS: BP 119/65; O2SAT 98
[2024-01-25] MEDS: IBUPROFEN 800 MG TAB PO PRN (22:08)
[2024-01-25] MEDS: ACETAMINOPHEN 500 MG TAB PO PRN (23:14)
[2024-01-25] MEDS: ONDANSETRON 4MG 2ML VIAL IV PRN (23:14)
[2024-01-26 06:00] VITALS: BP 120/72; O2SAT 99
[2024-01-26] MEDS: PRENATAL VITAMINS CHEWABLE TABLET PO SCH (08:03)
[2024-01-26 16:10] VITALS: BP 125/64; O2SAT 99
[2024-01-26 17:58] VITALS: BP 120/64; O2SAT 100
[2024-01-26] MEDS: DOCUSATE SODIUM 100MG CAPSULE PO PRN (20:25)
[2024-01-27 06:00] VITALS: BP 97/51; O2SAT 98
== END 2024-01-27 18:47 | disposition home or self-care (01) | DRG 560 ==
LOC: M LDO 10:28 → M LDI 13:49 → EEVIPCON 13:49 → M OBS 21:47
PROVIDERS: ADMIT Obstetrics & Gynecology; ATTEND Obstetrics & Gynecology
PROC: 10E0XZZ Delivery of Products of Conception, External Approach (ICD-10-PCS; principal; 2024-01-25)
PROC: 3E0P7GC Introduction of Other Therapeutic Substance into Female Reproductive, Via Natural or Artificial Opening (ICD-10-PCS; 2024-01-25)
DX: O13.4 Gestational [pregnancy-induced] hypertension without significant proteinuria, complicating childbirth (principal); Z88.5 Allergy status to narcotic agent; Z79.52 Long term (current) use of systemic steroids; Z37.0 Single live birth

== ENCOUNTER 2024-01-30 20:15 | Emergency (ER) | payer OTHER ==
[~2024-01-30] VITALS: Ht 162.6 cm; Wt 100.3 kg
[2024-01-30 21:30] LABS: BASO % 0.4 % (0.0-1.0); EOS # 0.3 10^3/uL (0.0-0.5); HEMATOCRIT 36.1 % (36.0-47.0); HEMOGLOBIN 11.8 g/dl (12.0-15.5); LYMPH # 2.7 10^3/uL (1.5-5.0); LYMPH % 25.9 % (24.0-44.0); MEAN CORPUSCULAR HEMOGLOBIN 26.5 pg (27.0-33.0); MEAN CORPUSCULAR HGB CONC 32.7 g/dl (32.0-36.5); MEAN CORPUSCULAR VOLUME 81.1 fl (80.0-96.0); MONO # 0.7 10^3/uL (0.0-0.8); MONO % 6.5 % (2.0-8.0); NEUTROPHILS # 6.7 10^3/uL (1.5-8.5); NEUTROPHILS % 63.5 % (36.0-66.0); PLATELET COUNT, AUTOMATED 493 10^3/uL (150-450); RED BLOOD COUNT 4.45 10^6/uL (4.00-5.40); WHITE BLOOD COUNT 10.6 10^3/uL (4.0-10.0)
[2024-01-30 21:43] LABS: INR 1.01
[2024-01-30 21:48] LABS: URIC ACID 6.1 MG/DL (3.1-7.8)
[2024-01-30 21:51] LABS: ALBUMIN 2.5 G/DL (3.2-5.2); ALKALINE PHOSPHATASE 141 U/L (46-116); ALT/SGPT 31 U/L (7.0-40); AST/SGOT 25 U/L (<34); BILIRUBIN,DIRECT < 0.1 MG/DL (<0.4); BILIRUBIN,TOTAL 0.3 MG/DL (0.3-1.2); BLOOD UREA NITROGEN 12 MG/DL (9-23); CALCIUM LEVEL 8.8 MG/DL (8.5-10.1); CARBON DIOXIDE LEVEL 24 MMOL/L (20-31); CHLORIDE LEVEL 109 MMOL/L (98-107); CREATININE FOR GFR 0.64 MG/DL (0.55-1.30); GLOMERULAR FILTRATION RATE > 60.0 (>60); GLUCOSE, FASTING 85 MG/DL (60-100); MAGNESIUM LEVEL 1.9 MG/DL (1.8-2.4); POTASSIUM SERUM 4.2 MMOL/L (3.5-5.1); SODIUM LEVEL 139 MMOL/L (136-145); TOTAL PROTEIN 6.3 G/DL (5.7-8.2)
[2024-01-30 22:09] LABS: APPEARANCE, URINE HAZY (CLEAR); BACTERIA, URINE AUTO NEGATIVE (NEGATIVE); BILIRUBIN, URINE AUTO NEGATIVE (NEGATIVE); BLOOD, URINE BLOOD 3+ (NEGATIVE); COLOR, URINE YELLOW (YELLOW); GLUCOSE, URINE (UA) AUTO NEGATIVE (NEGATIVE); KETONE, URINE AUTO NEGATIVE (NEGATIVE); LEUKOCYTE ESTERASE, URINE AUTO 3+ (NEGATIVE); MUCUS, URINE SMALL (NEGATIVE); NITRITE, URINE AUTO NEGATIVE (NEGATIVE); PROTEIN, URINE AUTO 1+ mg/dL (NEGATIVE); RBC, URINE AUTO TNTC /HPF (0-3); SPECIFIC GRAVITY URINE AUTO 1.018 (1.002-1.035); SQUAMOUS EPITHELIAL CELL UR AU 5 /HPF (0-6); UROBILINOGEN, URINE AUTO 0.2 mg/dL (0.0-2.0); WBC, URINE AUTO 42 /HPF (0-3)
[2024-01-30 22:15] VITALS: O2SAT 97
[2024-01-30 22:30] VITALS: BP 120/72; TEMP 97.2
== END 2024-01-30 22:50 | disposition home or self-care (01) ==
LOC: M ED 20:15
DX: R06.00 Dyspnea, unspecified (principal); F41.9 Anxiety disorder, unspecified

== ENCOUNTER → 2024-03-09 | Outpatient (REF) | payer OTHER ==
[2024-03-09 17:37] LABS: BASO # 0.1 10^3/uL (0.0-0.2); BASO % 0.4 % (0.0-1.0); EOS # 0.7 10^3/uL (0.0-0.5); EOS % 6.2 % (0.0-3.0); HEMATOCRIT 40.8 % (36.0-47.0); LYMPH # 2.8 10^3/uL (1.5-5.0); LYMPH % 24.6 % (24.0-44.0); MEAN CORPUSCULAR HEMOGLOBIN 25.8 pg (27.0-33.0); MEAN CORPUSCULAR HGB CONC 31.9 g/dl (32.0-36.5); MEAN CORPUSCULAR VOLUME 81.1 fl (80.0-96.0); MONO # 0.7 10^3/uL (0.0-0.8); NEUTROPHILS # 7.1 10^3/uL (1.5-8.5); NEUTROPHILS % 62.4 % (36.0-66.0); PLATELET COUNT, AUTOMATED 431 10^3/uL (150-450); RED BLOOD COUNT 5.03 10^6/uL (4.00-5.40); WHITE BLOOD COUNT 11.3 10^3/uL (4.0-10.0)
[2024-03-09 18:09] LABS: ALBUMIN 3.6 G/DL (3.2-5.2); ALKALINE PHOSPHATASE 123 U/L (46-116); ALT/SGPT 57 U/L (7.0-40); AST/SGOT 32 U/L (<34); BILIRUBIN,TOTAL 0.3 MG/DL (0.3-1.2); BLOOD UREA NITROGEN 12 MG/DL (9-23); CALCIUM LEVEL 9.1 MG/DL (8.5-10.1); CARBON DIOXIDE LEVEL 28 MMOL/L (20-31); CHLORIDE LEVEL 107 MMOL/L (98-107); CREATININE FOR GFR 0.79 MG/DL (0.55-1.30); GLOMERULAR FILTRATION RATE > 60.0 (>60); GLUCOSE, FASTING 83 MG/DL (60-100); MAGNESIUM LEVEL 1.9 MG/DL (1.8-2.4); POTASSIUM SERUM 4.3 MMOL/L (3.5-5.1); SODIUM LEVEL 140 MMOL/L (136-145); TOTAL PROTEIN 7.3 G/DL (5.7-8.2)
[2024-03-09 18:14] LABS: FREE T4 1.17 NG/DL (0.89-1.76); THYROID STIMULATING HORMONE 1.059 uIU/ML (0.55-4.78)
== END ==
LOC: M SFHCCLAY 13:36
PROVIDERS: ATTEND Family Medicine
DX: R00.2 Palpitations (principal); R51.9 Headache, unspecified

== ENCOUNTER → 2024-04-11 | Outpatient (REF) | payer OTHER | LOC: M SFHCCLAY 09:00 | PROVIDERS: ATTEND Physician Assistant | DX: R10.9 Unspecified abdominal pain (principal) ==

== ENCOUNTER → 2024-04-11 | Outpatient (CLI) | payer OTHER | LOC: M CLY 09:21 | PROVIDERS: ATTEND Physician Assistant | DX: K59.00 Constipation, unspecified (principal) ==

== ENCOUNTER → 2024-04-19 | Outpatient (REF) | payer OTHER ==
[2024-04-19 19:26] LABS: BASO % 0.4 % (0.0-1.0); EOS # 1.9 10^3/uL (0.0-0.5); EOS % 18.7 % (0.0-3.0); HEMATOCRIT 40.1 % (36.0-47.0); HEMOGLOBIN 12.7 g/dl (12.0-15.5); LYMPH # 2.7 10^3/uL (1.5-5.0); LYMPH % 26.1 % (24.0-44.0); MEAN CORPUSCULAR HEMOGLOBIN 25.9 pg (27.0-33.0); MEAN CORPUSCULAR HGB CONC 31.7 g/dl (32.0-36.5); MEAN CORPUSCULAR VOLUME 81.8 fl (80.0-96.0); MONO # 0.6 10^3/uL (0.0-0.8); NEUTROPHILS % 48.6 % (36.0-66.0); PLATELET COUNT, AUTOMATED 376 10^3/uL (150-450); WHITE BLOOD COUNT 10.4 10^3/uL (4.0-10.0)
[2024-04-19 19:57] LABS: LIPASE 49 U/L (12-53)
[2024-04-19 19:59] LABS: ALBUMIN 3.5 G/DL (3.2-5.2); ALKALINE PHOSPHATASE 128 U/L (46-116); ALT/SGPT 64 U/L (7.0-40); AST/SGOT 35 U/L (<34); BILIRUBIN,TOTAL 0.3 MG/DL (0.3-1.2); BLOOD UREA NITROGEN 11 MG/DL (9-23); CALCIUM LEVEL 9.3 MG/DL (8.5-10.1); CARBON DIOXIDE LEVEL 27 MMOL/L (20-31); CHLORIDE LEVEL 109 MMOL/L (98-107); CREATININE FOR GFR 0.73 MG/DL (0.55-1.30); GLOMERULAR FILTRATION RATE > 60.0 (>60); GLUCOSE, FASTING 80 MG/DL (60-100); POTASSIUM SERUM 4.1 MMOL/L (3.5-5.1); SODIUM LEVEL 143 MMOL/L (136-145); TOTAL PROTEIN 7.3 G/DL (5.7-8.2)
== END ==
LOC: M SFHCCLAY 14:22
PROVIDERS: ATTEND Physician Assistant
DX: R10.13 Epigastric pain (principal)

== ENCOUNTER → 2024-04-20 | Outpatient (REF) | payer OTHER | LOC: M SFHCCLAY 11:37 | PROVIDERS: ATTEND Physician Assistant | DX: R19.7 Diarrhea, unspecified (principal) ==

== ENCOUNTER → 2024-04-24 | Outpatient (REF) | payer OTHER | LOC: M SFHCCLAY 13:49 | PROVIDERS: ATTEND Family Medicine | DX: R10.13 Epigastric pain (principal) ==

== ENCOUNTER → 2024-06-09 | Outpatient (REF) | payer OTHER ==
[2024-06-09 12:42] LABS: ALBUMIN 3.6 G/DL (3.2-5.2); ALKALINE PHOSPHATASE 128 U/L (35-104); ALT/SGPT 41 U/L (7.0-40); AST/SGOT 23 U/L (<34); BILIRUBIN,TOTAL 0.4 MG/DL (0.3-1.2); BLOOD UREA NITROGEN 11 MG/DL (9-23); CALCIUM LEVEL 9.4 MG/DL (8.5-10.1); CARBON DIOXIDE LEVEL 28 MMOL/L (20-31); CHLORIDE LEVEL 106 MMOL/L (98-107); CREATININE FOR GFR 0.72 MG/DL (0.55-1.30); GLOMERULAR FILTRATION RATE > 60.0 (>60); GLUCOSE, FASTING 75 MG/DL (60-100); SODIUM LEVEL 143 MMOL/L (136-145); TOTAL PROTEIN 7.5 G/DL (5.7-8.2)
== END ==
LOC: M SFHCCLAY 08:14
PROVIDERS: ATTEND Family Medicine
DX: R10.13 Epigastric pain (principal)

== ENCOUNTER → 2025-01-25 | Outpatient (REF) | payer OTHER | LOC: M SFHCCLAY 10:11 | PROVIDERS: ATTEND Family Medicine | DX: Z01.84 Encounter for antibody response examination (principal) ==

== ENCOUNTER → 2025-02-14 | Outpatient (REF) | payer OTHER | LOC: M SFHCCLAY 10:38 | PROVIDERS: ATTEND Family Medicine | DX: Z01.84 Encounter for antibody response examination (principal) ==

== ENCOUNTER → 2025-03-30 | Outpatient (REF) | payer OTHER ==
[2025-03-30 15:00] LABS: PLATELET COUNT, AUTOMATED 374 10^3/uL (150-450)
[2025-03-30 15:04] LABS: HCG, SERUM QUALITATIVE NEGATIVE (NEGATIVE)
[2025-03-30 15:07] LABS: ALT/SGPT 22 U/L (7.0-40); AST/SGOT 19 U/L (<34); CALCIUM LEVEL 8.8 MG/DL (8.5-10.1); CARBON DIOXIDE LEVEL 25 MMOL/L (20-31); CHLORIDE LEVEL 107 MMOL/L (98-107); CREATININE FOR GFR 0.74 MG/DL (0.55-1.30); GLOMERULAR FILTRATION RATE > 90.0 (>60); POTASSIUM SERUM 3.9 MMOL/L (3.5-5.1); SODIUM LEVEL 139 MMOL/L (136-145); TOTAL T3 114.4 NG/DL (60.0-181.0)
[2025-03-30 15:08] LABS: FREE T4 0.98 NG/DL (0.89-1.76)
[2025-03-30 15:09] LABS: VITAMIN B12 LEVEL 574 PG/ML (211-911)
== END ==
LOC: M SFHCCLAY 09:10
PROVIDERS: ATTEND Family Medicine
DX: G62.9 Polyneuropathy, unspecified (principal); R10.13 Epigastric pain; R00.2 Palpitations; Z78.9 Other specified health status